=== PATIENT | female | born 1980 | race Caucasian/White ===

== ENCOUNTER 2016-05-24 19:15 | Emergency (ER) | payer OTHER, MEDICAID ==
[2016-05-24] MEDS ORDERED: NS 1,000 ML IV ONE ×2 (20:34→22:00)
[2016-05-24] MEDS ORDERED: KETOROLAC 30 MG/1 ML SDV IVP ONE (20:36)
[2016-05-24] MEDS ORDERED: DEXAMETHASONE 10 MG/ML VIAL IVP ONE (20:36)
[2016-05-24] MEDS ORDERED: HYDROmorphONE/DILAUDID 1 MG/ML SYR IVP ONE ×3 (20:36→23:26)
[2016-05-24] MEDS ORDERED: PROMETHAZINE HCL 25 MG/ML INJ IVP ONE (20:37)
--- NOTE | 2016-05-24 20:41 | EDPHY ---
H & P Stated Complaint: migraine, cluster headache spike Time Seen by Provider: 05/24/16 20:17 HPI/ROS: CHIEF COMPLAINT: Migraine HISTORY OF PRESENT ILLNESS: Patient is a 36-year-old female with a history of chronic migraines comes to the emergency department complaining of a flare. She states that she has a migraine every day of her life but that she occasionally has flares that tend to last about a week. She is currently having 1 of those. It seems to be centered in her right eye. She has not had a fever. She has not had any trauma. No neck pain or stiffness. She states that this is absolutely characteristic of her chronic migraines. She is on several medications including Klonopin, Phenergan, Benadryl and Zofran at home as well as large doses of Dilaudid. At 1 point she was taking 20 mg of Dilaudid per day but is trying to taper off. She states however that she ran out of her medications because she is trying to take them last and has not been feeling them regularly. She has been urged by the pain clinic doctor Inderjit. She is here requesting Dilaudid, Phenergan, Benadryl, Decadron and ketamine. REVIEW OF SYSTEMS: Constitutional: denies: chills, fever, recent illness, recent injury EENTM: denies: blurred vision, double vision, nose congestion Respiratory: denies: cough, shortness of breath Cardiac: denies: chest pain, irregular heart rate, lightheadedness, palpitations Gastrointestinal/Abdominal: denies: abdominal pain, diarrhea, nausea, vomiting, blood streaked stools Genitourinary: denies: dysuria, frequency, hematuria, pain Musculoskeletal: denies: joint pain, muscle pain Skin: denies: lesions, rash, jaundice, bruising Neurological: See HPI denies: numbness, paresthesia, tingling, dizziness, weakness Hematologic/Lymphatic: denies: blood clots, easy bleeding, easy bruising Immunologic/allergic: denies: HIV/AIDS, transplant EXAM: GENERAL: Wearing sunglasses and a hat in a darkened room. HEAD: Atraumatic, normocephalic. EYES: Pupils equal round and reactive to light, sensitive to light come extraocular movements intact, sclera anicteric, conjunctiva are normal. ENT: TMs normal, nares patent, oropharynx clear without exudates. Moist mucous membranes. NECK: Normal range of motion, supple without lymphadenopathy or JVD. LUNGS: Breath sounds clear to auscultation bilaterally and equal. No wheezes rales or rhonchi. HEART: Regular rate and rhythm without murmurs, rubs or gallops. ABDOMEN: Soft, nontender, normoactive bowel sounds. No guarding, no rebound. No masses appreciated. BACK: No CVA tenderness, no spinal tenderness, step-offs or deformities EXTREMITIES: Normal range of motion, no pitting or edema. No clubbing or cyanosis. NEUROLOGICAL: Cranial nerves II through XII grossly intact. Normal speech, normal gait. 5/5 strength, normal movement in all extremities, normal sensation PSYCH: Normal mood, normal affect. SKIN: Warm, dry, normal turgor, no visible rashes or lesions. Source: Patient, Family, Old records - Personal History LMP (Females 10-55): 22-28 Days Ago Current Tetanus/Diphtheria Vaccine: Yes Current Tetanus Diphtheria and Acellular Pertussis (TDAP): Yes Tetanus Vaccine Date: 2012 - Medical/Surgical History Hx Asthma: No Hx Chronic Respiratory Disease: No Hx Diabetes: No Hx Cardiac Disease: No Hx Renal Disease: No Hx Cirrhosis: No Hx Alcoholism: Yes Hx HIV/AIDS: No Hx Splenectomy or Spleen Trauma: No Other PMH: GI bleed, chronic migraines, chronic pain, Recoverying Alcoholic- sober - Family History Significant Family History: Hypertension - Social History Smoking Status: Former smoker Alcohol Use: Sober Drug Use: None Constitutional: Initial Vital Signs Temperature (C) 37.1 C 05/24/16 19:39 Heart Rate 101 H 05/24/16 19:39 Respiratory Rate 16 05/24/16 19:39 Blood Pressure 112/77 05/24/16 19:39 O2 Sat (%) 99 05/24/16 19:39 O2 Delivery Mode Room Air O2 (L/minute) 2 Allergies/Adverse Reactions: gluten [Gluten] Allergy (Unknown, Verified 03/16/16 18:32) CELIAC, ABD CRAMPING ergotamine Allergy (Verified 03/16/16 18:32) haloperidol [From Haldol] Allergy (Verified 03/16/16 18:32) haloperidol lactate [From Haldol] Allergy (Verified 03/16/16 18:32) [id number] Antimigraine Agents Allergy (Verified 03/16/16 18:32) Home Medications: Medication Instructions Recorded Promethazine HCl [Phenergan 12.5mg 12.5 - 25 mg PO Q6 PRN 01/16/13 tab] clonazePAM [Klonopin (RX)] 0.5 - 1.5 mg PO HS 01/16/13 diphenhydrAMINE [Benadryl] 25 - 50 mg PO BID PRN 01/16/13 DILAUDID 10/30/15 Ondansetron Odt [Zofran Odt 4 mg 4 mg PO Q4 PRN #20 tab 03/16/16 (RX)] Medical Decision Making ED Course/Re-evaluation: 9:15 p.m. the patient states that her pain is beginning to inch down. She is requesting some more pain medication. I will give her dose of ketamine. She states that this usually helps her use less Dilaudid. 11:15 p.m. the patient is requesting another dose of Dilaudid. 11:45 p.m. the patient states that her symptoms have resolved. She is eager to go home. Her family is ready to take her. She has prescriptions from her pain management physician. She will follow up with them. We discussed indications for returning. Differential Diagnosis: Partial list of the Differential diagnosis considered include but were not limited to; migraine, chronic migraine, cluster headache, and although unlikely based on the history and physical exam, I also considered seizure, infection, trauma. I discussed these differential diagnoses and the plan with the patient as well as the usual and expected course. The patient understands that the diagnosis is provisional and that in medicine we are not always correct and that further workup is often warranted. Usual and customary warnings were given. All of the patient's questions were answered. The patient was instructed to return to the emergency department should the symptoms at all worsen or return, otherwise to followup with the physician as we discussed. - Data Points Medications Given: Discontinued Medications Dexamethasone (Decadron Injection) 10 mg IVP EDNOW ONE Stop: 05/24/16 20:37 Last Admin: 05/24/16 20:58 Dose: 10 mg Diphenhydramine HCl (Benadryl Injection) 25 mg IVP EDNOW ONE Stop: 05/24/16 20:37 Last Admin: 05/24/16 20:57 Dose: 25 mg Hydromorphone HCl (Dilaudid) 1 mg IVP EDNOW ONE Stop: 05/24/16 20:37 Last Admin: 05/24/16 20:50 Dose: 1 mg Hydromorphone HCl (Dilaudid) 1 mg IVP EDNOW ONE Stop: 05/24/16 22:12 Last Admin: 05/24/16 22:17 Dose: 1 mg Hydromorphone HCl (Dilaudid) 1 mg IVP EDNOW ONE Stop: 05/24/16 23:27 Last Admin: 05/24/16 23:35 Dose: 1 mg Sodium Chloride (Ns) 1,000 mls @ 0 mls/hr IV ONCE ONE PRN Reason: Wide Open Stop: 05/24/16 20:35 Last Admin: 05/24/16 20:36 Dose: 1,000 mls Sodium Chloride (Ns) 1,000 mls @ 0 mls/hr IV ONCE ONE PRN Reason: Wide Open Stop: 05/24/16 22:01 Last Admin: 05/24/16 22:00 Dose: 1,000 mls Ketamine HCl (Ketamine) 10 mg IVP EDNOW ONE Stop: 05/24/16 21:18 Last Admin: 05/24/16 21:35 Dose: 10 mg Ketamine HCl (Ketamine) 10 mg IVP EDNOW ONE Stop: 05/24/16 22:48 Last Admin: 05/24/16 22:47 Dose: 10 mg Ketorolac Tromethamine (Toradol) 30 mg IVP EDNOW ONE Stop: 05/24/16 20:37 Last Admin: 05/24/16 20:55 Dose: 30 mg Promethazine HCl (Phenergan Injection) 25 mg IVP EDNOW ONE Stop: 05/24/16 20:38 Last Admin: 05/24/16 20:56 Dose: 25 mg Departure - Departure Disposition: Home, Routine, Self-Care Clinical Impression: Migraine Qualifiers: Migraine type: unspecified Status migrainosus presence: with status migrainosus Intractability: intractable Qualifier Code: (G43.911) Migraine, unspecified, intractable, with status migrainosus Condition: Fair Instructions: Migraine Headache (ED) Referrals: Marisa Jansen PA [Primary Care Provider] - As per Instructions
[2016-05-24 21:03] VITALS: RESP 20
[2016-05-24] MEDS ORDERED: KETAMINE 100 MG/10 ML SYR IVP ONE (21:17)
[2016-05-24] MEDS ORDERED: KETAMINE 500 MG/10 ML VIAL IVP ONE (22:47)
[2016-05-24 23:57] VITALS: BP 98/63; PULSE 78; TEMP 98.1; O2SAT 99
== END 2016-05-24 23:58 | disposition home or self-care (01) ==
DX: G43.911 Migraine, unspecified, intractable, with status migrainosus (principal); Z87.891 Personal history of nicotine dependence
CPT/HCPCS: 96374; J1170; J1200; J1885; J2550

== ENCOUNTER 2016-11-15 04:00 | Emergency (ER) | payer OTHER, MEDICAID ==
[2016-11-15] MEDS ORDERED: KETOROLAC 15 MG/1 ML SDV IVP/IM ONE (04:18)
[2016-11-15] MEDS ORDERED: NS 1,000 ML IV ONE (04:20)
[2016-11-15] MEDS ORDERED: KETAMINE 100 MG/10 ML SYR IVP ONE (04:23)
[2016-11-15] MEDS ORDERED: ONDANSETRON 4 MG/2 ML VIAL IVP ONE ×2 (04:23→06:17)
--- NOTE | 2016-11-15 04:24 | EDPHY ---
H & P Stated Complaint: migraine x4 days, N/V, = photophobia + otophobia Time Seen by Provider: 11/15/16 04:15 HPI/ROS: CHIEF COMPLAINT: Her migraine HISTORY OF PRESENT ILLNESS: The patient is a 36-year-old female with a history of chronic migraines she states she has had a migraine every day of her life. She comes to the emergency department today because her migraine stopped 4 months ago and she went off all of her medications including chronic large doses of Dilaudid, steroids, Klonopin, Phenergan and Benadryl and Zofran. She states that a few days ago see accidentally a gluten and this triggered her migraine again. She has had the migraine for the last 4 days. She has not had a fever. No trauma. She states that this is typical of her migraines. She has had some nausea and vomiting. REVIEW OF SYSTEMS: Constitutional: denies: chills, fever, recent illness, recent injury EENTM: denies: blurred vision, double vision, nose congestion Respiratory: denies: cough, shortness of breath Cardiac: denies: chest pain, irregular heart rate, lightheadedness, palpitations Gastrointestinal/Abdominal: See HPI denies: abdominal pain, diarrhea, blood streaked stools Genitourinary: denies: dysuria, frequency, hematuria, pain Musculoskeletal: denies: joint pain, muscle pain Skin: denies: lesions, rash, jaundice, bruising Neurological: See HPI denies:numbness, paresthesia, tingling, dizziness, weakness Hematologic/Lymphatic: denies: blood clots, easy bleeding, easy bruising Immunologic/allergic: denies: HIV/AIDS, transplant EXAM: GENERAL: In the dark, soft voice HEAD: Atraumatic, normocephalic. EYES: Pupils equal round and reactive to light, extraocular movements intact, sclera anicteric, conjunctiva are normal. ENT: TMs normal, nares patent, oropharynx clear without exudates. Moist mucous membranes. NECK: Normal range of motion, supple without lymphadenopathy or JVD. LUNGS: Breath sounds clear to auscultation bilaterally and equal. No wheezes rales or rhonchi. HEART: Regular rate and rhythm without murmurs, rubs or gallops. ABDOMEN: Soft, nontender, normoactive bowel sounds. No guarding, no rebound. No masses appreciated. BACK: No CVA tenderness, no spinal tenderness, step-offs or deformities EXTREMITIES: Normal range of motion, no pitting or edema. No clubbing or cyanosis. NEUROLOGICAL: Cranial nerves II through XII grossly intact. Normal speech, normal gait. 5/5 strength, normal movement in all extremities, normal sensation PSYCH: Normal mood, normal affect. SKIN: Warm, dry, normal turgor, no visible rashes or lesions. Source: Patient Exam Limitations: No limitations - Personal History LMP (Females 10-55): 15-21 Days Ago Current Tetanus/Diphtheria Vaccine: Yes Current Tetanus Diphtheria and Acellular Pertussis (TDAP): Yes Tetanus Vaccine Date: 2012 - Medical/Surgical History Hx Asthma: No Hx Chronic Respiratory Disease: No Hx Diabetes: No Hx Cardiac Disease: No Hx Renal Disease: No Hx Cirrhosis: No Hx Alcoholism: Yes Hx HIV/AIDS: No Hx Splenectomy or Spleen Trauma: No Other PMH: GI bleed, chronic migraines, chronic pain, Recoverying Alcoholic- sober - Family History Significant Family History: No pertinent family hx - Social History Smoking Status: Former smoker Alcohol Use: Sober Drug Use: None Constitutional: Initial Vital Signs Temperature (C) 36.6 C 11/15/16 04:01 Heart Rate 124 H 11/15/16 04:01 Respiratory Rate 18 11/15/16 04:01 Blood Pressure 111/82 H 11/15/16 04:01 O2 Sat (%) 96 11/15/16 04:01 O2 Delivery Mode Room Air Allergies/Adverse Reactions: gluten [Gluten] Allergy (Unknown, Verified 03/16/16 18:32) CELIAC, ABD CRAMPING ergotamine Allergy (Verified 03/16/16 18:32) haloperidol [From Haldol] Allergy (Verified 03/16/16 18:32) haloperidol lactate [From Haldol] Allergy (Verified 03/16/16 18:32) [id number] Antimigraine Agents Allergy (Verified 03/16/16 18:32) Home Medications: Medication Instructions Recorded KLONOPIN 11/15/16 Medical Decision Making ED Course/Re-evaluation: We discussed the fact that wearing narcotic free emergency department. The patient understands this and would like to primarily treat her symptoms with ketamine and Zofran. She declines Benadryl, Phenergan, Reglan and steroids. 5:30 a.m. the patient is feeling somewhat better. She is asking for 2nd dose of ketamine. 6:20 a.m. the patient is feeling much better. She is asking for 1 more dose of ketamine and Zofran before she goes as well as a take-home pack of Zofran. She states that her insurance limits her to 12 tablets of Zofran each month. Differential Diagnosis: Partial list of the Differential diagnosis considered include but were not limited to; migraine, anxiety, prescription medication misuse and although unlikely based on the history and physical exam, I also considered fever, tumor , seizure, CVA, MS. I discussed these differential diagnoses and the plan with the patient as well as the usual and expected course. The patient understands that the diagnosis is provisional and that in medicine we are not always correct and that further workup is often warranted. Usual and customary warnings were given. All of the patient's questions were answered. The patient was instructed to return to the emergency department should the symptoms at all worsen or return, otherwise to followup with the physician as we discussed. - Data Points Medications Given: Discontinued Medications Sodium Chloride (Ns) 1,000 mls @ 0 mls/hr IV ONCE ONE; Wide Open PRN Reason: Protocol Stop: 11/15/16 04:21 Last Admin: 11/15/16 04:20 Dose: 1,000 mls Ketamine HCl (Ketamine) 15 mg IVP EDNOW ONE Stop: 11/15/16 04:24 Last Admin: 11/15/16 04:45 Dose: 15 mg Ketamine HCl (Ketamine) 15 mg IVP EDNOW ONE Stop: 11/15/16 05:22 Last Admin: 11/15/16 06:03 Dose: 15 mg Ketorolac Tromethamine (Toradol) 15 mg IVP/IM EDNOW ONE Stop: 11/15/16 04:19 Last Admin: 11/15/16 04:40 Dose: 15 mg Ondansetron HCl (Zofran) 4 mg IVP EDNOW ONE Stop: 11/15/16 04:24 Last Admin: 11/15/16 04:38 Dose: 4 mg Departure - Departure Disposition: Home, Routine, Self-Care Clinical Impression: Migraine Qualifiers: Migraine type: unspecified Status migrainosus presence: without status migrainosus Intractability: not intractable Qualified Code(s): G43.909 - Migraine, unspecified, not intractable, without status migrainosus Condition: Fair Instructions: Migraine Headache (ED) Referrals: Marisa Jansen PA [Primary Care Provider] - As per Instructions
[2016-11-15] MEDS ORDERED: KETAMINE 500 MG/10 ML VIAL IVP ONE ×2 (05:21→06:17)
[2016-11-15] MEDS ORDERED: KETAMINE 100 MG/10 ML SYR ONE ×2 (05:53→06:28)
[2016-11-15] MEDS ORDERED: ONDANSETRON 4MG PREPACK#2 BTL TAKEHOME ONE ×2 (06:25→06:35)
[2016-11-15 06:46] VITALS: BP 113/85; PULSE 86; RESP 18; TEMP 97.7; O2SAT 97
== END 2016-11-15 07:13 | disposition home or self-care (01) ==
DX: G43.909 Migraine, unspecified, not intractable, without status migrainosus (principal); E86.9 Volume depletion, unspecified; Z87.891 Personal history of nicotine dependence
CPT/HCPCS: 96374; J1885; J2405

== ENCOUNTER 2017-01-18 00:46 | Emergency (ER) | payer OTHER, MEDICAID ==
[2017-01-18 00:51] VITALS: RESP 16
[2017-01-18] MEDS ORDERED: NS 1,000 ML IV ONE (00:56)
[2017-01-18] MEDS ORDERED: ONDANSETRON 4 MG/2 ML VIAL IVP ONE (00:56)
[2017-01-18] MEDS ORDERED: HYDROmorphONE/DILAUDID 1 MG/ML INJ IVP ONE ×2 (00:56→02:06)
--- NOTE | 2017-01-18 00:56 | EDPHY ---
H & P Stated Complaint: RLQ abd pain for one week HPI/ROS: HPI CHIEF COMPLAINT: Abdominal pain HISTORY OF PRESENT ILLNESS: This patient very pleasant 36-year-old female significant past medical history for endometriosis, GI bleed, alcoholism and migraine disorder, she presents emergency room with a week and a half of right lower quadrant abdominal pain. She describes it as sharp stabbing. 10/10 pain. She denies fever. She endorses ongoing right lower quadrant pain for the past week and half. Associated nausea but no vomiting or diarrhea. Denies urinary symptoms. Denies being . Past Medical History: Migraine headaches, GI bleed, alcoholism Past Surgical History: Endometriosis surgery, appendectomy Social History: Denies daily use of drugs alcohol tobacco. Family History: Noncontributory ROS REVIEW OF SYSTEMS: A comprehensive 10 point review of systems is otherwise negative aside from elements mentioned in the history of present illness. Exam Constitutional appears well nontoxic, triage nursing summary reviewed, vital signs reviewed, awake/alert. Eyes normal conjunctivae and sclera, EOMI, PERRLA. HENT normal inspection, atraumatic, moist mucus membranes, no epistaxis, neck supple/ no meningismus, no raccoon eyes. Respiratory clear to auscultation bilaterally, normal breath sounds, no respiratory distress, no wheezing. Cardiovascular rate normal, regular rhythm, no murmur, no edema, distal pulses normal. Gastrointestinal soft, tender palpation right lower quadrant, no rebound, no guarding, normal bowel sounds, no distension, no pulsatile mass. Genitourinary no CVA tenderness. Musculoskeletal no midline vertebral tenderness, full range of motion, no calf swelling, no tenderness of extremities, no meningismus, good pulses, neurovascularly intact. Skin pink, warm, & dry, no rash, skin atraumatic. Neurologic awake, alert and oriented x 3, AAOx3, moves all 4 extremities equally, motor intact, sensory intact, CN II-XII intact, normal cerebellar, normal vision, normal speech. Psychiatric normal mood/affect. Heme/Lymph/Immune no lymphadenopathy. Differential diagnosis includes but is not limited to and in no particular order : Bowel obstruction, appendicitis, gallbladder disease, diverticulitis, colitis , enteritis, perforated viscus, gastritis, GERD, esophagitis, urinary tract infection, pyelonephritis, kidney stones Medical Decision Making: Plan for this patient IV establishment with IV fluid bolus, 0.5 mg IV Dilaudid for pain control Zofran for nausea check abdominal blood work, CT scan abdomen pelvis with IV contrast rule out acute appendicitis. Re-evaluation: 0208AM: Patient's test is positive. QUANT pending. I have canceled this patient CT scan. Will proceed with ultrasound. Patient reports to me her last menstrual period was November 30 to December 05. She has since not had a menstrual period. This is her 1st . She does tell me on December 21 she started taking control mid cycle. Has done so since. No further. 0239AM: Ultrasound of the pelvis The results of the study are this shows a 6 week 4 days IUP. Good flow to both ovaries. Left corpus luteum ovarian cyst, heart rate of baby is 117 slightly low. But no subchorionic hemorrhage. I discussed the results of this study with the radiologist Dr. Heaton 0331: I did re-evaluate the patient she is resting comfortably. Re- examination her abdomen is soft minimal tenderness. Her ultrasound has been reviewed. She is she has an IUP. Vital signs are stable. Labs are reviewed. No elevated white blood cell count. She understands that she has a 6 week 4 day IUP should follow up with OBGYN she start taking a vitamin. She should refrain from drinking alcohol. Additionally she is on clot in chronically for anxiety. I explained should taper off this medication with her primary care doctor as this is not a good medication to be on while she is . She understands this. She understands return emergency room if she develops worsening abdominal pain fever vomiting. She does have right lower quadrant pain but minimal. No white count. She has had an appendectomy. The ultrasound shows normal ovaries. Source: Patient - Personal History LMP (Females 10-55): Over 28 Days Ago Current Tetanus/Diphtheria Vaccine: Yes Current Tetanus Diphtheria and Acellular Pertussis (TDAP): Yes Tetanus Vaccine Date: 2012 - Medical/Surgical History Hx Asthma: No Hx Chronic Respiratory Disease: No Hx Diabetes: No Hx Cardiac Disease: No Hx Renal Disease: No Hx Cirrhosis: No Hx Alcoholism: Yes Hx HIV/AIDS: No Hx Splenectomy or Spleen Trauma: No Other PMH: GI bleed, chronic migraines, chronic pain, Recoverying Alcoholic- sober, endometriosis - Social History Smoking Status: Former smoker Constitutional: Initial Vital Signs Temperature (C) 36.7 C 01/18/17 00:48 Heart Rate 105 H 01/18/17 00:48 Respiratory Rate 16 01/18/17 00:48 Blood Pressure 130/76 H 01/18/17 00:48 O2 Sat (%) 100 01/18/17 00:48 O2 Delivery Mode Room Air Allergies/Adverse Reactions: gluten [Gluten] Allergy (Unknown, Verified 01/18/17 00:52) CELIAC, ABD CRAMPING ergotamine Allergy (Verified 01/18/17 00:52) haloperidol [From Haldol] Allergy (Verified 01/18/17 00:52) haloperidol lactate [From Haldol] Allergy (Verified 01/18/17 00:52) [id number] Antimigraine Agents Allergy (Verified 01/18/17 00:52) Home Medications: Medication Instructions Recorded LIGIA 11/15/16 Medical Decision Making - Data Points Laboratory Results: Laboratory Results 01/18/17 01:07 01/18/17 01:07 01/18/17 01/18/17 01/18/17 01:17 01:07 01:07 WBC RBC Hgb Hct MCV MCH MCHC RDW Plt Count MPV Neut % (Auto) Lymph % (Auto) Swisher % (Auto) Eos % (Auto) Baso % (Auto) Nucleat RBC Rel Count Absolute Neuts (auto) Absolute Lymphs (auto) Absolute Monos (auto) Absolute Eos (auto) Absolute Basos (auto) Absolute Nucleated RBC Immature Gran % Immature Gran # Sodium 139 mEq/L mEq/L (134-144) Potassium 3.8 mEq/L mEq/L (3.5-5.2) Chloride 103 mEq/L mEq/L (97-110) Carbon Dioxide 21 mEq/l L mEq/l (22-31) Anion Gap 15 mEq/L mEq/L (8-16) BUN 14 mg/dL mg/dL (7-23) Creatinine 0.9 mg/dL mg/dL (0.6-1.0) Estimated GFR > 60 Glucose 84 mg/dL mg/dL (70-100) Calcium 9.4 mg/dL mg/dL (8.5-10.4) Total Bilirubin 0.4 mg/dL mg/dL (0.1-1.4) Conjugated Bilirubin 0.2 mg/dL mg/dL (0.0-0.5) Unconjugated Bilirubin 0.2 mg/dL mg/dL (0.0-1.1) AST 17 IU/L IU/L (14-46) ALT 29 IU/L IU/L (9-52) Alkaline Phosphatase 61 IU/L IU/L (38-126) Total Protein 7.6 g/dL g/dL (6.3-8.2) Albumin 4.4 g/dL g/dL (3.5-5.0) Lipase 258 IU/L IU/L (23-300) Beta HCG, Qual POSITIVE Beta HCG, Quant Urine Color COLORLESS Urine Appearance CLEAR Urine pH 7.0 (5.0-7.5) Ur Specific Slade 1.004 (1.002-1.030) Urine Protein NEGATIVE (NEGATIVE) Urine Ketones NEGATIVE (NEGATIVE) Urine Blood NEGATIVE (NEGATIVE) Urine Nitrate NEGATIVE (NEGATIVE) Urine Bilirubin NEGATIVE (NEGATIVE) Urine Urobilinogen NEGATIVE EU EU (0.2-1.0) Ur Leukocyte Esterase NEGATIVE (NEGATIVE) Urine Glucose NEGATIVE (NEGATIVE) 01/18/17 01/18/17 01:07 01:00 WBC 8.21 10^3/uL 10^3/uL (3.80-9.50) RBC 4.61 10^6/uL 10^6/uL (4.18-5.33) Hgb 13.4 g/dL g/dL (12.6-16.3) Hct 38.9 % % (38.0-47.0) MCV 84.4 fL fL (81.5-99.8) MCH 29.1 pg pg (27.9-34.1) MCHC 34.4 g/dL g/dL (32.4-36.7) RDW 12.9 % % (11.5-15.2) Plt Count 254 10^3/uL 10^3/uL (150-400) MPV 10.8 fL fL (8.7-11.7) Neut % (Auto) 48.6 % % (39.3-74.2) Lymph % (Auto) 41.0 % % (15.0-45.0) Swisher % (Auto) 7.6 % % (4.5-13.0) Eos % (Auto) 1.9 % % (0.6-7.6) Baso % (Auto) 0.5 % % (0.3-1.7) Nucleat RBC Rel Count 0.0 % % (0.0-0.2) Absolute Neuts (auto) 3.99 10^3/uL 10^3/uL (1.70-6.50) Absolute Lymphs (auto) 3.37 10^3/uL H 10^3/uL (1.00-3.00) Absolute Monos (auto) 0.62 10^3/uL 10^3/uL (0.30-0.80) Absolute Eos (auto) 0.16 10^3/uL 10^3/uL (0.03-0.40) Absolute Basos (auto) 0.04 10^3/uL 10^3/uL (0.02-0.10) Absolute Nucleated RBC 0.00 10^3/uL 10^3/uL (0-0.01) Immature Gran % 0.4 % % (0.0-1.1) Immature Gran # 0.03 10^3/uL 10^3/uL (0.00-0.10) Sodium Potassium Chloride Carbon Dioxide Anion Gap BUN Creatinine Estimated GFR Glucose Calcium Total Bilirubin Conjugated Bilirubin Unconjugated Bilirubin AST ALT Alkaline Phosphatase Total Protein Albumin Lipase Beta HCG, Qual Beta HCG, Quant 25288.00 mIU/mL H mIU/mL (0.00-4.83) Urine Color Urine Appearance Urine pH Ur Specific Slade Urine Protein Urine Ketones Urine Blood Urine Nitrate Urine Bilirubin Urine Urobilinogen Ur Leukocyte Esterase Urine Glucose Medications Given: Discontinued Medications Acetaminophen (Tylenol) 1,000 mg PO EDNOW ONE Stop: 01/18/17 02:37 Last Admin: 01/18/17 02:45 Dose: 1,000 mg Hydromorphone HCl (Dilaudid) 0.5 mg IVP EDNOW ONE Stop: 01/18/17 00:57 Last Admin: 01/18/17 01:08 Dose: 0.5 mg Hydromorphone HCl (Dilaudid) 0.5 mg IVP EDNOW ONE Stop: 01/18/17 02:07 Last Admin: 01/18/17 02:07 Dose: 0.5 mg Sodium Chloride (Ns) 1,000 mls @ 0 mls/hr IV EDNOW ONE; Wide Open PRN Reason: Protocol Stop: 01/18/17 00:57 Last Admin: 01/18/17 01:07 Dose: 1,000 mls Ondansetron HCl (Zofran) 4 mg IVP EDNOW ONE Stop: 01/18/17 00:57 Last Admin: 01/18/17 01:07 Dose: 4 mg Departure - Departure Disposition: Home, Routine, Self-Care Clinical Impression: Abdominal pain Qualifiers: Abdominal location: right lower quadrant Qualified Code(s): R10.31 - Right lower quadrant pain Qualifiers: Weeks of gestation: less than 8 weeks Qualified Code(s): Z3A.01 - Less than 8 weeks gestation of Condition: Good Instructions: Acute Abdominal Pain (ED), (ED) Additional Instructions: 1.Return to the emergency room if he develops worsening symptoms questions or concerns. 2. Start taking a vitamin. 3. Do not drink alcohol or smoke tobacco. I do also recommend you taper with your doctor off your Klonopin. Referrals: Marisa Jansen PA [Primary Care Provider] - As per Instructions
[2017-01-18 01:26] LABS: % IMMATURE GRANULYOCYTES 0.4 % (0.0-1.1); ABSOLUTE IMMATURE GRANULOCYTES 0.03 10^3/uL (0.00-0.10); ADD DIFF? NO; ADD MORPH? NO; ADD SCAN? NO; ATYPICAL LYMPHOCYTE FLAG 0 (0-99); FRAGMENT RBC FLAG 0 (0-99); HEMATOCRIT 38.9 % (38.0-47.0); HEMOGLOBIN 13.4 g/dL (12.6-16.3); LEFT SHIFT FLG 0 (0-99); LIPEMIA HEMOLYSIS FLAG 90 (0-99); MEAN CELL HEMOGLOBIN 29.1 pg (27.9-34.1); MEAN CELL HEMOGLOBIN CONCENTR. 34.4 g/dL (32.4-36.7); MEAN CELL VOLUME 84.4 fL (81.5-99.8); MEAN PLATELET VOLUME 10.8 fL (8.7-11.7); PLATELET CLUMPS FLAG 0 (0-99); PLATELET COUNT 254 10^3/uL (150-400); RED BLOOD CELL COUNT 4.61 10^6/uL (4.18-5.33); RED CELL DISTRIBUTION WIDTH 12.9 % (11.5-15.2)
[2017-01-18] MEDS ORDERED: IOPAMIDOL (ISOVUE-300) 100 ML BTL ONE (01:27)
[2017-01-18 01:36] LABS: ALANINE AMINOTRANSFERASE 29 IU/L (9-52); ALBUMIN 4.4 g/dL (3.5-5.0); ALKALINE PHOSPHATASE 61 IU/L (38-126); ANION GAP 15 mEq/L (8-16); ASPARTATE AMINOTRANSFERASE 17 IU/L (14-46); BILIRUBIN,TOTAL 0.4 mg/dL (0.1-1.4); BILIRUBIN-CONJUGATED 0.2 mg/dL (0.0-0.5); BILIRUBIN-UNCONJUGATED 0.2 mg/dL (0.0-1.1); CALCIUM 9.4 mg/dL (8.5-10.4); CARBON DIOXIDE 21 mEq/l (22-31); CHLORIDE 103 mEq/L (97-110); CREATININE 0.9 mg/dL (0.6-1.0); GLOMERULAR FILTRATION RATE > 60; GLUCOSE 84 mg/dL (70-100); POTASSIUM 3.8 mEq/L (3.5-5.2); SODIUM 139 mEq/L (134-144); TOTAL PROTEIN 7.6 g/dL (6.3-8.2)
[2017-01-18 01:40] LABS: COLOR COLORLESS; LEUKOCYTE ESTERASE,URINE NEGATIVE (NEGATIVE); NITRITE,URINE NEGATIVE (NEGATIVE)
[2017-01-18] MEDS ORDERED: HYDROmorphONE/DILAUDID 1 MG/ML INJ ONE (01:55)
[2017-01-18] MEDS ORDERED: ACETAMINOPHEN 500 MG TAB PO ONE (02:36)
[2017-01-18 03:42] VITALS: BP 112/74; PULSE 80; TEMP 97.9; O2SAT 99
== END 2017-01-18 03:58 | disposition home or self-care (01) ==
PROC: 3E0337Z Introduction of Electrolytic and Water Balance Substance into Peripheral Vein, Percutaneous Approach (ICD-10-PCS; principal; 2017-01-18)
DX: O26.891 Other specified pregnancy related conditions, first trimester (principal); R10.31 Right lower quadrant pain; O99.281 Endocrine, nutritional and metabolic diseases complicating pregnancy, first trimester; E86.9 Volume depletion, unspecified; Z3A.01 Less than 8 weeks gestation of pregnancy; Z87.891 Personal history of nicotine dependence; Z90.49 Acquired absence of other specified parts of digestive tract
CPT/HCPCS: 96374; J1170; J2405; Q9967

== ENCOUNTER → 2017-01-20 | Outpatient (CLI) | payer OTHER | LOC: FIMAGING 10:53 | PROVIDERS: ATTEND Physician Assistant | DX: R10.11 Right upper quadrant pain (principal); Z33.1 Pregnant state, incidental ==

== ENCOUNTER 2017-01-29 09:09 | Observation (INO) | payer OTHER ==
--- NOTE | 2017-01-29 09:38 | EDPHY ---
H & P Stated Complaint: 8 wks r sided abd pain/cramping and spotting Time Seen by Provider: 01/29/17 09:22 HPI/ROS: CHIEF COMPLAINT: Vaginal bleeding, , continued abdominal pain HISTORY OF PRESENT ILLNESS: 37-year-old female currently 8 weeks , seen emergency department 11 days ago for complaints of abdominal pain at which point she was found to be . She presents to the ER today complaining of continued right-sided abdominal pain with new vaginal bleeding for the past 7 days with recent passage of multiple clots as well as right flank pain. Also states that yesterday when she was getting out of the shower she had a syncopal episode, denies trauma to her head or other body region. States that she started feel lightheaded when she was coming out of the shower. No complaints of chest pain, dyspnea. At her last emergency department visit the patient had a confirmed IUP, no history of IVF. She has history of appendectomy as well. Patient saw her OBGYN today at [facility] and was told to come to the ER for evaluation She denies: Nausea, vomiting, diarrhea, melena, hematochezia, dysuria, increased frequency, headache, peripheral edema, seizure REVIEW OF SYSTEMS: A ten point review of systems was performed and is negative with the exception of the items mentioned in the HPI PAST MEDICAL & SURGICAL HISTORY: currently 8 weeks . Appendectomy. Endometriosis. Migraine. Alcoholism. SOCIAL HISTORY: denies recent alcohol use PHYSICAL EXAM (Prior to examination, patient consented to physical exam, hands were washed and my usual and customary physical exam procedures followed) 1) GENERAL: Well-developed, well-nourished, alert and oriented. Appears uncomfortable . 2) HEAD: Normocephalic, atraumatic 3) HEENT: Pupils equal, round, reactive to light bilaterally. Sclera anicteric. Nasopharynx, oropharynx, clear, no lesions. Moist mucous membrane 4) NECK: Full range of motion, no meningeal signs. 5) LUNGS: Clear auscultation bilaterally, no wheezes, no rhonchi, no retractions. 6) HEART: Regular rate and rhythm, no murmur, no heave, no gallop. 7) ABDOMEN: Guarding abdomen, tender to palpation right upper and right lower quadrants. Negative peritoneal sign., 8) MUSCULOSKELETAL: Moving all extremities, no focal areas of tenderness, no obvious trauma. No peripheral edema or discoloration. 9) BACK: positive right CVA tenderness, no midline vertebral tenderness, no fluctuance, no step-off, no obvious trauma, no visual or palpable abnormality. 10) SKIN: No rash, no petechiae. 11) Psychiatric: Patient is oriented X 3, there is no agitation. DIFFERENTIAL DIAGNOSIS: in no particular order including but limited to ectopic , spontaneous , nephrolithiasis, pyelonephritis ureterolithiasis - Personal History LMP (Females 10-55): Current Tetanus/Diphtheria Vaccine: Yes Tetanus Vaccine Date: 2012 - Medical/Surgical History Hx Asthma: No Hx Chronic Respiratory Disease: No Hx Diabetes: No Hx Cardiac Disease: No Hx Renal Disease: No Hx Cirrhosis: No Hx Alcoholism: Yes Hx HIV/AIDS: No Hx Splenectomy or Spleen Trauma: No Other PMH: GI bleed, chronic migraines, chronic pain, Recoverying Alcoholic- sober, endometriosis - Social History Smoking Status: Former smoker Constitutional: Initial Vital Signs Temperature (C) 36.8 C 01/29/17 09:17 Heart Rate 105 H 01/29/17 09:17 Respiratory Rate 20 01/29/17 09:17 Blood Pressure 106/86 H 01/29/17 09:17 O2 Sat (%) 98 01/29/17 09:17 O2 Delivery Mode Room Air Allergies/Adverse Reactions: gluten [Gluten] Allergy (Unknown, Verified 01/29/17 09:16) CELIAC, ABD CRAMPING ergotamine Allergy (Verified 01/29/17 09:16) haloperidol [From Haldol] Allergy (Verified 01/29/17 09:16) haloperidol lactate [From Haldol] Allergy (Verified 01/29/17 09:16) [id number] Antimigraine Agents Allergy (Verified 01/29/17 09:16) Home Medications: Medication Instructions Recorded KLONOPIN 11/15/16 Medical Decision Making - Diagnostics Imaging Results: Imaging Impressions Abdomen Ultrasound 01/29/17 09:32 Impression: There has been no significant interval change since 01/20/2017 in the appearance of the upper abdomen. Findings were discussed with Paris Funk PA-C at 11:24, on 01/29/2017. Obstetrics Ultrasound 01/29/17 09:32 Impression: 1. Single living intrauterine gestation with estimated gestational age of 8 weeks 1 day. 2. Small subchorionic hemorrhage. Findings discussed with Jenn Funk PA-C, 01/29/2017 at 1146 hours. ED Course/Re-evaluation: 9:38 a.m.: Old medical records reviewed including ultrasounds of 11 days ago. At that time she had no complaints of vaginal bleeding, she is currently complaining of vaginal bleeding. Will obtain Rh and repeat ultrasound and re- evaluate.. Discussed case with Dr. Chance Quintana in the ER 12:13 p.m.: Re-evaluation, discussed her imaging results with her. At this time she is crying and appears to be in quite a bit of discomfort, requesting analgesia. She has a history of benzodiazepine dependence, last used Klonopin last evening. She is attempting to taper off of this. I had a lengthy discussion with her informed her of the risks and benefits of both benzodiazepine and opiate use during . Because she is in quite a bit of discomfort she requests these medications and verbalized understanding of the risks to her unborn child. 1:10 a.m.: Re-evaluation, patient given IV Dilaudid, Ativan, Zofran, complaining of continued intractable pain, crying at this time. The specific etiology of her abdominal pain is not completely clear at this time as she has a history of appendectomy, shows no signs of acute cholecystitis, no evidence of cystitis or pyelonephritis. 1:20 p.m.: Phone consultation with Dr. Alisson Oliva agrees to admit patient. 1:45 p.m.: Patient requesting further analgesia. With nurse Gab Quan at bedside, I once again had another discussion with the patient regarding the indications, risks, benefits, of opiate use during . She has verbalized understanding of the risks and wishes to proceed with analgesia given the extent of her current pain. - Data Points Laboratory Results: Laboratory Results 01/29/17 09:30 01/29/17 09:30 01/29/17 01/29/17 01/29/17 09:30 09:30 09:30 WBC RBC Hgb Hct MCV MCH MCHC RDW Plt Count MPV Neut % (Auto) Lymph % (Auto) Stanton % (Auto) Eos % (Auto) Baso % (Auto) Nucleat RBC Rel Count Absolute Neuts (auto) Absolute Lymphs (auto) Absolute Monos (auto) Absolute Eos (auto) Absolute Basos (auto) Absolute Nucleated RBC Immature Gran % Immature Gran # Sodium 142 mEq/L mEq/L (134-144) Potassium 3.5 mEq/L mEq/L (3.5-5.2) Chloride 109 mEq/L mEq/L (97-110) Carbon Dioxide 21 mEq/l L mEq/l (22-31) Anion Gap 12 mEq/L mEq/L (8-16) BUN 6 mg/dL L mg/dL (7-23) Creatinine 0.7 mg/dL mg/dL (0.6-1.0) Estimated GFR > 60 Glucose 90 mg/dL mg/dL (70-100) Calcium 9.2 mg/dL mg/dL (8.5-10.4) Total Bilirubin 0.4 mg/dL mg/dL (0.1-1.4) Conjugated Bilirubin 0.3 mg/dL mg/dL (0.0-0.5) Unconjugated Bilirubin 0.1 mg/dL mg/dL (0.0-1.1) AST 17 IU/L IU/L (14-46) ALT 28 IU/L IU/L (9-52) Alkaline Phosphatase 51 IU/L IU/L (38-126) Total Protein 6.9 g/dL g/dL (6.3-8.2) Albumin 4.1 g/dL g/dL (3.5-5.0) Lipase 98 IU/L IU/L (23-300) Beta HCG, Quant 71199.00 mIU/mL H mIU/mL (0.00-4.83) Urine Color YELLOW Urine Appearance CLEAR Urine pH 6.0 (5.0-7.5) Ur Specific Kendall 1.023 (1.002-1.030) Urine Protein NEGATIVE (NEGATIVE) Urine Ketones NEGATIVE (NEGATIVE) Urine Blood NEGATIVE (NEGATIVE) Urine Nitrate NEGATIVE (NEGATIVE) Urine Bilirubin NEGATIVE (NEGATIVE) Urine Urobilinogen NEGATIVE EU EU (0.2-1.0) Ur Leukocyte Esterase NEGATIVE (NEGATIVE) Urine RBC 1-3 /hpf /hpf (0-3) Urine WBC 1-3 /hpf /hpf (0-3) Ur Epithelial Cells NONE SEEN /lpf /lpf (NONE-1+) Urine Mucus TRACE /lpf /lpf (NONE-1+) Urine Glucose NEGATIVE (NEGATIVE) Patient ABO/Rh O POSITIVE 01/29/17 09:30 WBC 6.38 10^3/uL 10^3/uL (3.80-9.50) RBC 4.32 10^6/uL 10^6/uL (4.18-5.33) Hgb 12.5 g/dL L g/dL (12.6-16.3) Hct 37.0 % L % (38.0-47.0) MCV 85.6 fL fL (81.5-99.8) MCH 28.9 pg pg (27.9-34.1) MCHC 33.8 g/dL g/dL (32.4-36.7) RDW 13.0 % % (11.5-15.2) Plt Count 225 10^3/uL 10^3/uL (150-400) MPV 10.8 fL fL (8.7-11.7) Neut % (Auto) 48.7 % % (39.3-74.2) Lymph % (Auto) 38.6 % % (15.0-45.0) Stanton % (Auto) 9.9 % % (4.5-13.0) Eos % (Auto) 2.0 % % (0.6-7.6) Baso % (Auto) 0.6 % % (0.3-1.7) Nucleat RBC Rel Count 0.0 % % (0.0-0.2) Absolute Neuts (auto) 3.11 10^3/uL 10^3/uL (1.70-6.50) Absolute Lymphs (auto) 2.46 10^3/uL 10^3/uL (1.00-3.00) Absolute Monos (auto) 0.63 10^3/uL 10^3/uL (0.30-0.80) Absolute Eos (auto) 0.13 10^3/uL 10^3/uL (0.03-0.40) Absolute Basos (auto) 0.04 10^3/uL 10^3/uL (0.02-0.10) Absolute Nucleated RBC 0.00 10^3/uL 10^3/uL (0-0.01) Immature Gran % 0.2 % % (0.0-1.1) Immature Gran # 0.01 10^3/uL 10^3/uL (0.00-0.10) Sodium Potassium Chloride Carbon Dioxide Anion Gap BUN Creatinine Estimated GFR Glucose Calcium Total Bilirubin Conjugated Bilirubin Unconjugated Bilirubin AST ALT Alkaline Phosphatase Total Protein Albumin Lipase Beta HCG, Quant Urine Color Urine Appearance Urine pH Ur Specific Kendall Urine Protein Urine Ketones Urine Blood Urine Nitrate Urine Bilirubin Urine Urobilinogen Ur Leukocyte Esterase Urine RBC Urine WBC Ur Epithelial Cells Urine Mucus Urine Glucose Patient ABO/Rh Medications Given: Discontinued Medications Hydromorphone HCl (Dilaudid) 1 mg IVP EDNOW ONE Stop: 01/29/17 12:15 Last Admin: 01/29/17 12:19 Dose: 1 mg Sodium Chloride (Ns) 1,000 mls @ 0 mls/hr IV ONCE ONE PRN Reason: Wide Open Stop: 01/29/17 13:22 Last Admin: 01/29/17 13:24 Dose: 1,000 mls Lorazepam (Ativan Injection) 1 mg IVP EDNOW ONE Stop: 01/29/17 12:15 Last Admin: 01/29/17 12:19 Dose: 1 mg Ondansetron HCl (Zofran) 4 mg IVP EDNOW ONE Stop: 01/29/17 12:15 Last Admin: 01/29/17 12:19 Dose: 4 mg Departure - Departure Disposition: [facility] Acute Clinical Impression: Abdominal pain Qualifiers: Abdominal location: right lower quadrant Qualified Code(s): R10.31 - Right lower quadrant pain Condition: Fair
[2017-01-29 09:49] LABS: % IMMATURE GRANULYOCYTES 0.2 % (0.0-1.1); ABSOLUTE IMMATURE GRANULOCYTES 0.01 10^3/uL (0.00-0.10); ADD DIFF? NO; ADD MORPH? NO; ADD SCAN? NO; ATYPICAL LYMPHOCYTE FLAG 30 (0-99); COLOR YELLOW; FRAGMENT RBC FLAG 0 (0-99); HEMOGLOBIN 12.5 g/dL (12.6-16.3); LEFT SHIFT FLG 0 (0-99); LEUKOCYTE ESTERASE,URINE NEGATIVE (NEGATIVE); LIPEMIA HEMOLYSIS FLAG 90 (0-99); MEAN CELL HEMOGLOBIN 28.9 pg (27.9-34.1); MEAN CELL HEMOGLOBIN CONCENTR. 33.8 g/dL (32.4-36.7); MEAN CELL VOLUME 85.6 fL (81.5-99.8); MEAN PLATELET VOLUME 10.8 fL (8.7-11.7); NITRITE,URINE NEGATIVE (NEGATIVE); PLATELET CLUMPS FLAG 0 (0-99); PLATELET COUNT 225 10^3/uL (150-400); RED BLOOD CELL COUNT 4.32 10^6/uL (4.18-5.33)
--- NOTE | 2017-01-29 09:54 | CPEKG ---
Heart Rate: 86 RR Interval: 698 P-R Interval: 148 QRSD Interval: 78 QT Interval: 344 QTC Interval: 412 P Donald: 74 QRS Donald: 71 T Wave Donald: 17 EKG Severity - NORMAL ECG - EKG Impression: SINUS RHYTHM Electronically Signed By: Chance Quintana 29-Jan-2017 15:34:09
[2017-01-29 09:55] LABS: MUCUS TRACE /lpf (NONE-1+)
[2017-01-29 10:05] LABS: ALANINE AMINOTRANSFERASE 28 IU/L (9-52); ALBUMIN 4.1 g/dL (3.5-5.0); ALKALINE PHOSPHATASE 51 IU/L (38-126); ANION GAP 12 mEq/L (8-16); ASPARTATE AMINOTRANSFERASE 17 IU/L (14-46); BILIRUBIN,TOTAL 0.4 mg/dL (0.1-1.4); BILIRUBIN-CONJUGATED 0.3 mg/dL (0.0-0.5); BILIRUBIN-UNCONJUGATED 0.1 mg/dL (0.0-1.1); CALCIUM 9.2 mg/dL (8.5-10.4); CARBON DIOXIDE 21 mEq/l (22-31); CHLORIDE 109 mEq/L (97-110); CREATININE 0.7 mg/dL (0.6-1.0); GLOMERULAR FILTRATION RATE > 60; GLUCOSE 90 mg/dL (70-100); POTASSIUM 3.5 mEq/L (3.5-5.2); SODIUM 142 mEq/L (134-144); TOTAL PROTEIN 6.9 g/dL (6.3-8.2)
[2017-01-29] MEDS ORDERED: HYDROmorphONE/DILAUDID 1 MG/ML INJ IVP ONE ×2 (12:14→13:55)
[2017-01-29] MEDS ORDERED: LORazepam 2 MG/ML INJ IVP ONE (12:14)
[2017-01-29] MEDS ORDERED: ONDANSETRON 4 MG/2 ML VIAL IVP ONE (12:14)
[2017-01-29] MEDS ORDERED: NS 1,000 ML IV ONE (13:21)
[2017-01-29] MEDS ORDERED: TERBUTALINE SULFATE 1 MG/ML VIAL SC ONE (13:56)
[2017-01-29] MEDS ORDERED: ONDANSETRON DISINTEGRATING 4 MG TAB PO PRN (15:49)
[2017-01-29] MEDS ORDERED: HYDROCODONE/APAP 5/325 TAB PO PRN (15:50)
[2017-01-29] MEDS: LR 1,000 ML IV SCH (16:00)
[2017-01-29] MEDS: oxyCODONE IR 5 MG TAB PO PRN ×2 (16:27→20:31)
[2017-01-29] MEDS: HYDROmorphONE/DILAUDID 1 MG/ML INJ IVP PRN ×2 (18:42→22:58)
--- NOTE | 2017-01-29 20:22 | GHP ---
[f rep st] PREOP HISTORY AND PHYSICAL DATE OF ADMISSION: 01/29/2017 ADMITTING DIAGNOSIS: Intrauterine at 8 and 4/7 weeks' gestation with severe right lower qu adrant pain, presumed nephrolithiasis. HISTORY OF PRESENT ILLNESS: Marilu is a 37-year-old 1, para 0, with a last menstrual period of 11/30/2016, and an EDC of 09/06/2017 which was confirmed by a 6- and an 8-week ultrasound. She pres ented complaining of a 3-week history of increasing right lower quadrant pain and also some vaginal s potting today. She reports that the pain began approximately 3 weeks ago. She says it is mostly loc alized to the right lower quadrant. It is stabbing in nature, but has cramping aspects, and it radia orlin to her lower pelvis and around to her flank and her back. She has episodes where it waxes and wa pauline in intensity, but has become very intense over the last few days. She was initially evaluated in the emergency department on 01/18/2017 for this pain. At that time, she had a pelvic ultrasound, wh ich revealed that she was . She had a confirmed IUP of 6 weeks 5 days at that point with a h eart beat of 117. Ovaries were visualized and were normal. She had an abdominal ultrasound and hardeep l ultrasound, which revealed some increased lymphadenopathy in the right lower quadrant. It could re present mesenteric adenitis, some mild hepatic steatosis, and an echogenic 3 mm foci in the mid and l ower right kidney could represent nonobstructive calculi. They did not see hydronephrosis or hydrour eter, or any evidence of obstruction, and no evidence of gallbladder disease as well. The patient wa s discharged home, was given Tylenol for pain management. She followed up in my office, still having complaints of pain, and then she began developing some bleeding and spotting, and presented back to the emergency department. On evaluation of the ultrasound today, has a viable IUP of 8 weeks 4 days, improved heart rate in the 150s, and had a small subchorionic hemorrhage 6 x 4 x 5 mm that was new since the previous study, lidia carter explanation for her spotting. Abdominal and renal ultrasound was again repeated, and there was no change. The patient was having severe pain. She has been admitted for pain control. She has had IV fluids and pain medication, and her urine is strained, and during the course of her hospitalizati on today, she has had small, granular pieces seen in the strain of her urine, likely no further nephr olithiasis. On the patient's laboratory evaluation, white count is 6.38, hemoglobin 12.5, hematocrit 37.0, platel ets 225. Chemistries were normal. Urinalysis was negative for blood. Gonorrhea and chlamydia cultu res have been negative. No other labs were performed. The patient has been admitted for presumed nephrolithiasis, for IV hydration and pain control, and if she does not improve, we will have a urology consult. PAST OBSTETRICAL HISTORY: The patient has no significant past obstetrical history. This is her firs t , and this is an unplanned , but they are happy. PAST GYNECOLOGICAL HISTORY: Significant for endometriosis. She has had 2 laparoscopies for endometr iosis, in 2003 and 2008. She had an appendectomy during 1 of those surgeries. She also had a ruptur ed ovarian cyst and a bowel injury that was repaired. PAST MEDICAL HISTORY: She has had significant history of migraines with aura. Has been disabled for the past 4 years. Has had TIA events during these headaches. Had a total of 51 ER visits during th e course of the last 4 years. Things have improved over the last few months with her headaches. She has a significant history of alcoholism and drug abuse. She reports that she has been sober from co kal and marijuana for 14 years, and sober from alcohol for 8 years. PAST SURGICAL HISTORY: Tonsillectomy, laparoscopy x2, including appendectomy. ALLERGIES: She is allergic to Haldol; it gave her a possible CVA. She is allergic to the triptans. She is weaning off her Klonopin right now. She was on that prior to diagnosis. She takes vitamin D and calcium. Does not take vitamins because it contributes to her headaches. SOCIAL HISTORY: She is single. She is in a relationship with Ranjit. She is currently unemployed and disabled, secondary to her headaches. She denies tobacco, alcohol, and drug use now. FAMILY HISTORY: Paternal grandfather of heart disease. Paternal aunt had breast cancer and not dori else. REVIEW OF SYSTEMS: Negative for fever, chills, nausea, vomiting, diarrhea, any cardiovascular, respi ratory, psychological, or any other systemic symptoms. Only pertinent as above in HPI. PHYSICAL EXAMINATION: VITAL SIGNS: Currently she is afebrile. Temp is 36.7, blood pressure is 99/6 1, pulse is 89. She is 95% on room air. GENERAL: She is a thin, white woman in moderate distress s econdary to pain. She is writhing in pain. LUNGS: Clear to auscultation bilaterally. HEART: Regu lar rate and rhythm. No murmurs. ABDOMEN: Soft, nondistended. Pain is in the right lower quadrant , rebound and guarding. PELVIC: Exam was deferred. LABS AND STUDIES: As above in HPI. ASSESSMENT AND PLAN: 37-year-old 1, para 0 at 8 and 4/7 weeks' gestation, admitted for IV fl uids and pain control for presumed diagnosis of nephrolithiasis. The patient will be observed overni ght with heavy IV fluid rate as well as pain control. If she does not improve dramatically by mariela paredes, we will consider urological consult. /[id number]/MODL
[2017-01-30] MEDS: LR 1,000 ML IV SCH (00:28)
[2017-01-30] MEDS: oxyCODONE IR 5 MG TAB PO PRN ×4 (00:29→16:31)
[2017-01-30] MEDS: HYDROmorphONE/DILAUDID 1 MG/ML INJ IVP PRN ×3 (02:56→11:29)
[2017-01-30] MEDS ORDERED: PROMETHAZINE HCL 25 MG TAB PO PRN (04:22)
--- NOTE | 2017-01-30 04:35 | SOAPPROG ---
MAHENDRA Progress Note Assessment/Plan: Assessment: [id number] SAB (@8-4wks) ?nephrolithiasis Plan: POC sent to [facility] PRN will monitor bleeding consider urology consult in AM 01/30/17 04:31 01/30/17 04:36 Subjective: Pt reports bleeding and passing tissue and clots. She is reporting constant pain at this time, localized to RLQ. She denies any heavy bleeding. Patients father is at BS. Objective: Vital Signs Temp Pulse Resp BP Pulse Ox 36.5 C 88 16 111/75 96 01/30/17 00:20 01/30/17 00:20 01/30/17 00:20 01/30/17 00:20 01/30/17 00:20 01/28/17 01/29/17 01/30/17 05:59 05:59 05:59 Intake Total 600 Output Total 650 Balance -50 VSS Exam: constitutional: WNWF HEENT: normocephalic, atraumatic Abd: soft, nontender, nondistended Lochia: min rubra, no clots noted Extremities: WNL, no edema Official US done: results pending Physical Exam - Physical Exam General Appearance: WD/WN, alert Abdomen: non-tender, soft Pelvic Exam: deferred Rectal: deferred Skin: normal color, warm/dry Extremities: non-tender Neuro/Psych: no motor/sensory deficits, oriented x 3 ICD10 Worksheet Patient Problems: Problems Problem Status Onset Abdominal pain Acute Migraine Acute
[2017-01-30 06:16] VITALS: O2SAT 97
[2017-01-30 09:48] VITALS: BP 106/74; PULSE 110; RESP 22; TEMP 98.9
--- NOTE | 2017-01-30 10:09 | SOAPPROG ---
SOAP Progress Note Assessment/Plan: Assessment: 37 yo s/p spontaneous overnight with continued RLQ/R flank pain. Plan: 01/30/17 10:04 1. Continued pain management and support. 2. Consult hospitalist service for assistance with pain management and work-up of etiology of right flank pain. Subjective: Patient reports that she passed tissue and blood clots at 4 AM today. She reports uterine cramping prior to and during miscarriage. She reports minimal vaginal bleeding since. She reports right-sided stabbing pain (comes in waves) in right flank and now more so in RLQ for past 3 weeks. She states that this pain persists s/p miscarriage. She has been straining her urine since she was admitted yesterday and reports she has noted some particulate matter but no obvious stones. She underwent US yesterday which noted IUP and possible right renal/ureteral stones. She reports moderate to severe pain persists. She states she is not ready for discharge home. Objective: Vital Signs Temp Pulse Resp BP Pulse Ox 37.2 C 110 H 22 H 106/74 97 01/30/17 08:00 01/30/17 08:00 01/30/17 08:00 01/30/17 08:00 01/30/17 08:00 01/29/17 01/30/17 01/31/17 05:59 05:59 05:59 Intake Total 2400 Output Total 650 Balance 1750 General: AAOx3, NAD Lungs: Clear, no wheezes Heart: RRR, no murmurs appreciated Abdomen: bowel sounds present, non-distended, non-tender, no obvious TTP in RUQ , LUQ, LLQ, suprapubic or either flank, voluntary guarding on palpation of RLQ. Pelvic exam deferred. Extrem: no significant swelling or edema in BLE ICD10 Worksheet Patient Problems: Problems Problem Status Onset Abdominal pain Acute Migraine Acute
[2017-01-30] MEDS ORDERED: KETOROLAC 30 MG/1 ML SDV IVP ONE (13:37)
[2017-01-30] MEDS ORDERED: IOPAMIDOL (ISOVUE-300) 100 ML BTL ONE (13:40)
[2017-01-30 14:55] LABS: % IMMATURE GRANULYOCYTES 0.2 % (0.0-1.1); ABSOLUTE IMMATURE GRANULOCYTES 0.01 10^3/uL (0.00-0.10); ADD DIFF? NO; ADD MORPH? NO; ADD SCAN? NO; ATYPICAL LYMPHOCYTE FLAG 10 (0-99); FRAGMENT RBC FLAG 0 (0-99); HEMATOCRIT 29.8 % (38.0-47.0); HEMOGLOBIN 10.1 g/dL (12.6-16.3); LEFT SHIFT FLG 0 (0-99); LIPEMIA HEMOLYSIS FLAG 90 (0-99); MEAN CELL HEMOGLOBIN 28.9 pg (27.9-34.1); MEAN CELL HEMOGLOBIN CONCENTR. 33.9 g/dL (32.4-36.7); MEAN CELL VOLUME 85.4 fL (81.5-99.8); MEAN PLATELET VOLUME 10.3 fL (8.7-11.7); PLATELET CLUMPS FLAG 0 (0-99); PLATELET COUNT 169 10^3/uL (150-400); RED BLOOD CELL COUNT 3.49 10^6/uL (4.18-5.33); RED CELL DISTRIBUTION WIDTH 13.2 % (11.5-15.2)
[2017-01-30 14:57] LABS: COLOR COLORLESS; LEUKOCYTE ESTERASE,URINE NEGATIVE (NEGATIVE); NITRITE,URINE NEGATIVE (NEGATIVE)
[2017-01-30 15:16] LABS: ALANINE AMINOTRANSFERASE 42 IU/L (9-52); ALBUMIN 3.3 g/dL (3.5-5.0); ALKALINE PHOSPHATASE 51 IU/L (38-126); ASPARTATE AMINOTRANSFERASE 25 IU/L (14-46); BILIRUBIN,TOTAL 0.5 mg/dL (0.1-1.4); CALCIUM 8.9 mg/dL (8.5-10.4); CARBON DIOXIDE 25 mEq/l (22-31); CHLORIDE 102 mEq/L (97-110); CREATININE 0.6 mg/dL (0.6-1.0); GLOMERULAR FILTRATION RATE > 60; GLUCOSE 88 mg/dL (70-100); POTASSIUM 3.6 mEq/L (3.5-5.2); TOTAL PROTEIN 5.8 g/dL (6.3-8.2)
[2017-01-30 15:24] LABS: ANION GAP 9 mEq/L (8-16); SODIUM 136 mEq/L (134-144)
--- NOTE | 2017-01-30 16:45 | PDDCSUM ---
Discharge Summary Discharge Summary: DATE OF ADMISSION: 01/29/2017 DATE OF DISCHARGE: 01/30/2017 ADMITTING PHYSICIAN: Alisson Oliva MD DISCHARGING PHYSICIAN: Dominic Sepulveda MD ADMITTING DIAGNOSIS: 37 yo G1 with IUP @ 8 weeks gestational age admitted from ED with acute pelvic pain. HISTORY OF PRESENT ILLNESS/HOSPITAL COURSE: The patient is a 37 yo G1 WF @ 8 weeks gestation who presented to ED on 01/29/17 with acute right-sided pain. IUP was confirmed with heart activity also confirmed on transvaginal ultrasound. Patient was in pain and admitted to post- unit for observation. Abdominal US was also performed and concern for possible urolithiasis was mentioned. Patient was given IV narcotics, was straining her urine overnight, and passed large blood clots and tissue from vagina at approximately 4AM on 01/30/17. Follow-up transvaginal US was performed s/p suspected miscarriage. US revealed thickened endometrial lining but not obvious gestational sac, pole or any heart activity. CT scan of abdomen was also performed with revealed thickened endometrial lining, small free fluid near uterus and right ovary, evidence of prior appendectomy, and no evidence of urinary tract obstruction. By late afternoon, patient reported less pain and minimal vaginal bleeding. No obvious stone had been collected on straining of urine. Patient reported that her past medical history is significant for prior diagnostic laparoscopy for ovarian cysts and pelvic pain. She has previously been diagnosed with endometriosis and treated with laparoscopic fulguration of lesions. Discharge plan will be to discharge home with small dose of PO [place] 5/ 325 (#20, no refills) and close follow-up at [facility] with Evelyn Salas CNM, s/p miscarriage and to develop a coordinated plan for management of chronic pelvic pain. PROCEDURES PERFORMED: Pelvic US x 2, CT Abd/Pelvis COMPLICATIONS: None. FINAL DIAGNOSES: 1. Spontaneous @ 8 weeks gestation 2. Chronic pelvic pain DISCHARGE INSTRUCTIONS: Call for increased pain, fever or increased bleeding. Return to clinic in 5-10 days. DIET: Advance as tolerated. ACTIVITY: Advance as tolerated. Pelvic rest for 6 weeks. Nothing to be inserted into the vagina for 1-2 weeks, i.e. no tampons, douche or sex. MEDICATIONS AND FOLLOWUP: See above.
[2017-01-30] MEDS ORDERED: HYDROCODONE/APAP 5/325 TAB PO PRN (16:47)
--- NOTE | 2017-01-30 18:37 | GCON ---
[f rep st] CONSULTATION MEDICINE CONSULTATION DATE OF CONSULTATION: 01/30/2017 REASON FOR CONSULTATION: Right lower quadrant abdominal pain. HISTORY OF PRESENT ILLNESS: The patient is a 37-year-old female who is 1, para 0, who was admitted to the hospital last night with vaginal bleeding. She was seen in the emergency department on 01/18/2017, and diagnosed with intrauterine . At that time, it was noted the heart rate was only in the 110s. An obstetric ultrasound on the morning of admission showed intrauterine of 8 weeks and 1 day with a heart rate of 167 beats per minute. However, throughout the course of the night, she had more intense vaginal bleeding and passed several clots with tissue noted. Repeat ultrasound done early this morning showed evidence of an interval miscarriage with heterogeneous material suggesting blood products and/or retained products of conception. She was seen by the [facility] service and was monitored for bleeding. Her products of conception were sent for pathology. She was ultimately diagnosed with a spontaneous at 8 weeks and 4 days. The patient reported chronic right lower quadrant abdominal pain, which was worse. She did not feel comfortable discharging. Medicine was consulted for opinion regarding the source of her pain. The patient gives a history of endometriosis. She has had abdominal surgeries including an appendectomy and laparoscopy x2 for history of endometriosis. She states her pain started approximately 4 weeks ago and has been in her right side. Now, more localized in her right lower quadrant. This has not been associated with any fevers or chills. She has had no nausea, vomiting, or diarrhea. She has had multiple ultrasounds over the past few weeks. There was some question of a right-sided nephrolithiasis. However, she has had no hematuria on her urinalysis on admission. In the hospital, she has required oxycodone every 4 hours and 1 mg of IV Dilaudid every 4 hours for pain control. Her labs on arrival yesterday were unremarkable with a normal white count, normal kidney function and normal liver enzymes. Again, her urinalysis was negative for infection or red cells. PAST MEDICAL HISTORY: 1. History of migraine headaches. The patient describes this as a mysterious neurologic illness that lasted 4-1/2 years. 2. History of TIAs secondary to headaches. 3. History of alcohol abuse and polysubstance abuse including cocaine and marijuana. She is reportedly in remission from drugs for 14 years and in remission from alcohol for 8 years. 4. High healthcare utilizer with a total of 51 ER visits in the past 4 years. PAST SURGICAL HISTORY: 1. Tonsillectomy. 2. Laparoscopy x2. 3. Appendectomy. MEDICATIONS: Please see [facility] for complete and updated outpatient medication list. ALLERGIES: She has allergies to Haldol, triptans, gluten, ergotamine. FAMILY HISTORY: Her paternal grandfather had heart disease. Paternal aunt had breast cancer. SOCIAL HISTORY: The patient is single. She has a significant other, Ranjit, who is present at the bedside. She is currently unemployed and disabled secondary to her headaches. She denies recent use of alcohol, tobacco or drugs. REVIEW OF SYSTEMS: A 10-point review of systems was performed and is negative except as per HPI. PHYSICAL EXAMINATION: VITAL SIGNS: Temperature is 37.2, blood pressure 106/74 , heart rate 87-110, respiratory rate 16. She is 97% on room air. GENERAL: The patient is awake, alert and oriented. In no acute distress, although she does appear uncomfortable with frequent facial grimacing. HEENT: Head is atraumatic, normocephalic. Pupils are equal, round and react to light. Extraocular muscles intact. Oropharynx is clear. Mucous membranes are dry. NECK: Supple. There is no JVD. HEART: Regular rate and rhythm without murmur. LUNGS: Clear to auscultation bilaterally. ABDOMEN: Soft, nondistended. She has significant tenderness to palpation mostly in her right lower quadrant. There are no peritoneal signs. This is not an acute abdomen. EXTREMITIES: Without cyanosis, clubbing or edema. Warm and well perfused. NEUROLOGIC: Grossly nonfocal. LABORATORY DATA: Yesterday morning, urinalysis was negative. Yesterday morning, CBC showed a normal white count, hemoglobin of 12.5. Complete metabolic panel was essentially normal. Lipase was normal. Beta HCG quant was 67,445. IMAGING: As described above. Obstetric ultrasound on 01/29/2017, showed a viable intrauterine . A repeat ultrasound 01/30/2017, after heavy vaginal bleeding with passage of tissue, showed the gestational sac, pole and yolk sac were no longer identifiable with material in the endometrial cavity , most likely representing blood products. ASSESSMENT AND PLAN: The patient is a 37-year-old female with history of chronic pelvic pain, prior appendectomy and laparoscopy x2 for endometriosis with recent spontaneous miscarriage at 8 weeks and 4 days, with has ongoing abdominal pain 1. Acute on chronic pelvic pain. The patient is concerned about a kidney stone. We discussed that her urinalysis was negative for blood. I will repeat a urinalysis now and try to avoid contamination from her vaginal bleeding as we may see hematuria due to vaginal bleeding. Given that she is no longer , we will go ahead and proceed with a CT abdomen pelvis with contrast. I am most suspicious for possible pain from adhesions given her prior surgeries. Also consider ovarian torsion or abscess though these diagnoses seem less likely as she has had at least 4 ultrasounds in the past 10 days and her pain has been present for over 4 weeks. We will see what her CT shows, though I suspect this may be low yield. I do not think there are any indications for surgical evaluation at this time. She has no obstructive symptoms. She may warrant referral to a surgeon in the outpatient setting to determine if she needs elective laparoscopy for lysis of adhesions. I would recommend attempts at managing this with non-opioid therapy as I do note her heavy use of opiates in the hospital. 2. Spontaneous . The patient may be having worsening of her symptoms after her miscarriage in the setting of abdominal cramping. We will give a dose of Toradol to see if this helps her symptoms. Products of conception were sent for pathology. I will defer further management of followup on her miscarriage to her OBGYN service. 3. History of migraine headaches. The patient is headache-free at this time. She should follow up with her primary care physician. 4. Deep venous thrombosis prophylaxis. Patient is low risk. I do not anticipate a prolonged hospitalization. She is ambulating just fine. CODE STATUS: Patient is full code. DISPOSITION: Patient is observation status. If her CT scan is reassuring, I think she is safe for discharge home with close outpatient followup with her primary care physician and consideration of outpatient surgical evaluation for the possibility of chronic pain secondary to adhesions. /[id number]/MODL MTDD
== END 2017-01-30 17:15 | disposition home or self-care (01) ==
LOC: FOB 15:00
PROVIDERS: ADMIT Obstetrics & Gynecology; ATTEND Obstetrics & Gynecology
DX: O03.9 Complete or unspecified spontaneous abortion without complication (principal); Z3A.08 8 weeks gestation of pregnancy
CPT/HCPCS: 74177; 76700; 76801; 93005; 96361; 96374; 96375; 96376; 99285; G0378; J1170; J2060; J2405; Q9967

== ENCOUNTER 2017-02-10 17:55 | Observation (INO) | payer OTHER ==
[2017-02-10] MEDS ORDERED: ONDANSETRON 4 MG/2 ML VIAL IVP ONE (19:25)
[2017-02-10] MEDS ORDERED: NS 1,000 ML IV ONE (19:25)
[2017-02-10] MEDS ORDERED: HYDROmorphONE/DILAUDID 1 MG/ML INJ IVP ONE ×3 (19:25→21:54)
[2017-02-10 19:43] LABS: % IMMATURE GRANULYOCYTES 0.3 % (0.0-1.1); ABSOLUTE IMMATURE GRANULOCYTES 0.02 10^3/uL (0.00-0.10); ADD DIFF? NO; ADD MORPH? NO; ADD SCAN? NO; ATYPICAL LYMPHOCYTE FLAG 10 (0-99); FRAGMENT RBC FLAG 0 (0-99); LEFT SHIFT FLG 0 (0-99); LIPEMIA HEMOLYSIS FLAG 90 (0-99); MEAN CELL HEMOGLOBIN 29.6 pg (27.9-34.1); MEAN CELL HEMOGLOBIN CONCENTR. 35.3 g/dL (32.4-36.7); MEAN CELL VOLUME 83.7 fL (81.5-99.8); MEAN PLATELET VOLUME 10.5 fL (8.7-11.7); PLATELET CLUMPS FLAG 0 (0-99); PLATELET COUNT 248 10^3/uL (150-400); RED BLOOD CELL COUNT 4.06 10^6/uL (4.18-5.33)
[2017-02-10 19:46] LABS: ALANINE AMINOTRANSFERASE 28 IU/L (9-52); ALBUMIN 4.2 g/dL (3.5-5.0); ALKALINE PHOSPHATASE 52 IU/L (38-126); ANION GAP 10 mEq/L (8-16); ASPARTATE AMINOTRANSFERASE 15 IU/L (14-46); BILIRUBIN,TOTAL 0.7 mg/dL (0.1-1.4); BILIRUBIN-CONJUGATED 0.3 mg/dL (0.0-0.5); BILIRUBIN-UNCONJUGATED 0.4 mg/dL (0.0-1.1); CALCIUM 9.4 mg/dL (8.5-10.4); CARBON DIOXIDE 20 mEq/l (22-31); CHLORIDE 106 mEq/L (97-110); CREATININE 0.8 mg/dL (0.6-1.0); GLOMERULAR FILTRATION RATE > 60; GLUCOSE 80 mg/dL (70-100); POTASSIUM 3.9 mEq/L (3.5-5.2); SODIUM 136 mEq/L (134-144); TOTAL PROTEIN 6.9 g/dL (6.3-8.2)
--- NOTE | 2017-02-10 19:51 | EDPHY ---
H & P Time Seen by Provider: 02/10/17 18:51 HPI/ROS: CHIEF COMPLAINT: Abdominal pain HISTORY OF PRESENT ILLNESS: This is a 37-year-old female presents to the emergency department with a primary complaint of ongoing right sided abdominal pain. Patient reports that she has had abdominal discomfort for approximately 4 and half weeks. [No fever, chills, chest pain, shortness of breath, palpitations, vomiting, diarrhea, urinary complaints, headache, lightheadedness. ] REVIEW OF SYSTEMS: Aside from elements discussed in the HPI, a comprehensive 10-point review of systems was reviewed and is negative. PAST MEDICAL HISTORY: [ ] SOCIAL HISTORY: [ ] Smoking Status: Former smoker Constitutional: Initial Vital Signs Temperature (C) 37.4 C 02/10/17 18:15 Heart Rate 106 H 02/10/17 18:15 Respiratory Rate 16 02/10/17 18:15 Blood Pressure 122/98 H 02/10/17 18:15 O2 Sat (%) 98 02/10/17 18:15 O2 Delivery Mode Room Air Allergies/Adverse Reactions: gluten [Gluten] Allergy (Unknown, Verified 02/10/17 18:14) CELIAC, ABD CRAMPING ergotamine Allergy (Verified 02/10/17 18:14) haloperidol [From Haldol] Allergy (Verified 02/10/17 18:14) haloperidol lactate [From Haldol] Allergy (Verified 02/10/17 18:14) [id number] Antimigraine Agents Allergy (Verified 02/10/17 18:14) Home Medications: Medication Instructions Recorded clonazePAM [klonoPIN (*)] 1.5 mg PO HS 11/15/16 Medical Decision Making - Diagnostics Imaging Results: Imaging Impressions Pelvic/Renal Ultrasound 02/10/17 19:26 Impression: 1. Heterogenous endometrium measuring 1 cm thick with detectable vascularity may represent retained products of conception. 2. Mostly hypoechoic material in the cervical canal may represent clot. Dr. Vázquez discussed these findings by telephone with ordering Dr. Jess Royal at 2106 hours on 02/10/2017 - Data Points Laboratory Results: Laboratory Results 02/10/17 18:58 02/10/17 18:58 02/10/17 02/10/17 02/10/17 20:30 18:58 18:58 WBC RBC Hgb Hct MCV MCH MCHC RDW Plt Count MPV Neut % (Auto) Lymph % (Auto) [place] % (Auto) Eos % (Auto) Baso % (Auto) Nucleat RBC Rel Count Absolute Neuts (auto) Absolute Lymphs (auto) Absolute Monos (auto) Absolute Eos (auto) Absolute Basos (auto) Absolute Nucleated RBC Immature Gran % Immature Gran # Sodium Potassium Chloride Carbon Dioxide Anion Gap BUN Creatinine Estimated GFR Glucose Calcium Total Bilirubin Conjugated Bilirubin Unconjugated Bilirubin AST ALT Alkaline Phosphatase Total Protein Albumin Lipase Beta HCG, Qual Beta HCG, Quant 370.47 mIU/mL H mIU/mL (0.00-4.83) Urine Color YELLOW Urine Appearance HAZY Urine pH 5.0 (5.0-7.5) Ur Specific [place] 1.012 (1.002-1.030) Urine Protein NEGATIVE (NEGATIVE) Urine Ketones TRACE H (NEGATIVE) Urine Blood 3+ H (NEGATIVE) Urine Nitrate NEGATIVE (NEGATIVE) Urine Bilirubin NEGATIVE (NEGATIVE) Urine Urobilinogen NEGATIVE EU EU (0.2-1.0) Ur Leukocyte Esterase TRACE H (NEGATIVE) Urine RBC 1-3 /hpf /hpf (0-3) Urine WBC 5-10 /hpf H /hpf (0-3) Ur Epithelial Cells 1+ /lpf /lpf (NONE-1+) Urine Glucose NEGATIVE (NEGATIVE) Urine Opiates Screen NON-NEGATIVE H (NEGATIVE) Urine Barbiturates NEGATIVE (NEGATIVE) Ur Phencyclidine Scrn NEGATIVE (NEGATIVE) Ur Amphetamine Screen NEGATIVE (NEGATIVE) U Benzodiazepines Scrn NEGATIVE (NEGATIVE) Urine Cocaine Screen NEGATIVE (NEGATIVE) U Marijuana (THC) Screen NEGATIVE (NEGATIVE) Monoscreen NEGATIVE (NEGATIVE) 02/10/17 02/10/17 02/10/17 18:58 18:58 18:58 WBC 6.51 10^3/uL 10^3/uL (3.80-9.50) RBC 4.06 10^6/uL L 10^6/uL (4.18-5.33) Hgb 12.0 g/dL L g/dL (12.6-16.3) Hct 34.0 % L % (38.0-47.0) MCV 83.7 fL fL (81.5-99.8) MCH 29.6 pg pg (27.9-34.1) MCHC 35.3 g/dL g/dL (32.4-36.7) RDW 13.0 % % (11.5-15.2) Plt Count 248 10^3/uL 10^3/uL (150-400) MPV 10.5 fL fL (8.7-11.7) Neut % (Auto) 57.5 % % (39.3-74.2) Lymph % (Auto) 34.7 % % (15.0-45.0) [place] % (Auto) 6.9 % % (4.5-13.0) Eos % (Auto) 0.3 % L % (0.6-7.6) Baso % (Auto) 0.3 % % (0.3-1.7) Nucleat RBC Rel Count 0.0 % % (0.0-0.2) Absolute Neuts (auto) 3.74 10^3/uL 10^3/uL (1.70-6.50) Absolute Lymphs (auto) 2.26 10^3/uL 10^3/uL (1.00-3.00) Absolute Monos (auto) 0.45 10^3/uL 10^3/uL (0.30-0.80) Absolute Eos (auto) 0.02 10^3/uL L 10^3/uL (0.03-0.40) Absolute Basos (auto) 0.02 10^3/uL 10^3/uL (0.02-0.10) Absolute Nucleated RBC 0.00 10^3/uL 10^3/uL (0-0.01) Immature Gran % 0.3 % % (0.0-1.1) Immature Gran # 0.02 10^3/uL 10^3/uL (0.00-0.10) Sodium 136 mEq/L mEq/L (134-144) Potassium 3.9 mEq/L mEq/L (3.5-5.2) Chloride 106 mEq/L mEq/L (97-110) Carbon Dioxide 20 mEq/l L mEq/l (22-31) Anion Gap 10 mEq/L mEq/L (8-16) BUN 9 mg/dL mg/dL (7-23) Creatinine 0.8 mg/dL mg/dL (0.6-1.0) Estimated GFR > 60 Glucose 80 mg/dL mg/dL (70-100) Calcium 9.4 mg/dL mg/dL (8.5-10.4) Total Bilirubin 0.7 mg/dL mg/dL (0.1-1.4) Conjugated Bilirubin 0.3 mg/dL mg/dL (0.0-0.5) Unconjugated Bilirubin 0.4 mg/dL mg/dL (0.0-1.1) AST 15 IU/L IU/L (14-46) ALT 28 IU/L IU/L (9-52) Alkaline Phosphatase 52 IU/L IU/L (38-126) Total Protein 6.9 g/dL g/dL (6.3-8.2) Albumin 4.2 g/dL g/dL (3.5-5.0) Lipase 110 IU/L IU/L (23-300) Beta HCG, Qual POSITIVE Beta HCG, Quant Urine Color Urine Appearance Urine pH Ur Specific [place] Urine Protein Urine Ketones Urine Blood Urine Nitrate Urine Bilirubin Urine Urobilinogen Ur Leukocyte Esterase Urine RBC Urine WBC Ur Epithelial Cells Urine Glucose Urine Opiates Screen Urine Barbiturates Ur Phencyclidine Scrn Ur Amphetamine Screen U Benzodiazepines Scrn Urine Cocaine Screen U Marijuana (THC) Screen Monoscreen Medications Given: Discontinued Medications Hydromorphone HCl (Dilaudid) 1 mg IVP EDNOW ONE Stop: 02/10/17 19:26 Last Admin: 02/10/17 19:37 Dose: 1 mg Hydromorphone HCl (Dilaudid) 1 mg IVP EDNOW ONE Stop: 02/10/17 20:28 Last Admin: 02/10/17 20:35 Dose: 1 mg Hydromorphone HCl (Dilaudid) 1 mg IVP EDNOW ONE Stop: 02/10/17 21:55 Last Admin: 02/10/17 21:56 Dose: 1 mg Sodium Chloride (Ns) 1,000 mls @ 0 mls/hr IV EDNOW ONE; Wide Open PRN Reason: Protocol Stop: 02/10/17 19:26 Last Admin: 02/10/17 19:42 Dose: 1,000 mls Ketorolac Tromethamine (Toradol) 15 mg IVP EDNOW ONE Stop: 02/10/17 20:48 Last Admin: 02/10/17 21:17 Dose: 15 mg Ondansetron HCl (Zofran) 4 mg IVP EDNOW ONE Stop: 02/10/17 19:26 Last Admin: 02/10/17 19:37 Dose: 4 mg Promethazine HCl (Phenergan) 6.25 mg IVP ONCE ONE Stop: 02/10/17 20:41 Last Admin: 02/10/17 20:42 Dose: 6.25 mg Departure - Departure Condition: Fair Referrals: Marisa Jansen PA [Primary Care Provider] - As per Instructions
--- NOTE | 2017-02-10 20:36 | CPEKG ---
Heart Rate: 102 RR Interval: 588 P-R Interval: 152 QRSD Interval: 84 QT Interval: 336 QTC Interval: 438 P [place]: 79 QRS [place]: 79 T Wave [place]: -13 EKG Severity - BORDERLINE ECG - EKG Impression: SINUS TACHYCARDIA EKG Impression: BORDERLINE T ABNORMALITIES, DIFFUSE LEADS Electronically Signed By: Jess Royal 10-Feb-2017 23:07:37
[2017-02-10] MEDS ORDERED: PROMETHAZINE HCL 25 MG/ML INJ IVP ONE (20:40)
[2017-02-10] MEDS ORDERED: PROMETHAZINE HCL 25 MG/ML INJ ONE (20:41)
[2017-02-10] MEDS ORDERED: KETOROLAC 30 MG/1 ML SDV IVP ONE (20:47)
[2017-02-10 21:58] LABS: COLOR YELLOW; LEUKOCYTE ESTERASE,URINE TRACE (NEGATIVE); NITRITE,URINE NEGATIVE (NEGATIVE)
--- NOTE | 2017-02-10 23:01 | EDPHY ---
H & P Stated Complaint: r sided abd pain saw dr weston yesterday/miscarriage 10 days ago/ freq visits Time Seen by Provider: 02/10/17 18:51 HPI/ROS: CHIEF COMPLAINT: Ongoing abdominal pain HISTORY OF PRESENT ILLNESS: This is a 37-year-old female who presents the emergency department reporting that she has been having problems with right lower quadrant abdominal pain for the last 4 1/2 weeks. Patient had pain for about a week and a half when she was evaluated in the emergency department on January 18. At that time she was found to be . Ultrasound demonstrated a 6 week IUP with heart tones. Patient was discharged home but returned on January 29 reporting vaginal bleeding and ongoing pain. She also had a syncopal episode. At that time she was admitted to the hospital with a working diagnosis of a kidney stone which was causing her abdominal discomfort. An ultrasound done in the emergency department demonstrated an 8 week IUP. While in the hospital, the patient had a spontaneous miscarriage with a repeat ultrasound demonstrating no intrauterine . Patient did have a CT scan with IV contrast performed after her miscarriage with no specific findings to explain her ongoing right lower quadrant discomfort. She was noted to pass several crystals in her urine and again was felt to potentially have a kidney stone which had been causing her discomfort. She was discharged from the hospital on January 30. Patient was then seen at [facility] on February 02 with recurrent abdominal discomfort and worsening vaginal bleeding. Ultrasound done at that time was concerning for potential retained products of conception. Since that time the patient has had serial quants which has been noted to be falling. She presents tonight stating that while she was better for several days after she was seen at [facility], but last night she again developed significant right lower quadrant abdominal discomfort, right flank pain, nausea, as well as pain between her shoulder blades. She continues to have a small amount of vaginal bleeding but states that is much better than previously. Additionally, the patient reports night sweats. She also reports that she has lost a significant amount of weight over the last several months. Patient was evaluated by Dr. Heraclio Weston yesterday secondary to lymphadenopathy in the axilla as well as adenopathy noted on her pelvic ultrasounds. She has a low-grade fever on arrival to the emergency department but otherwise has not noted fevers. No urinary complaints. No burning when she urinates. No noted blood in the urine. No vomiting although she has been complaining of significant nausea. REVIEW OF SYSTEMS: Aside from elements discussed in the HPI, a comprehensive 10-point review of systems was reviewed and is negative. PAST MEDICAL HISTORY: Former alcoholic, endometriosis, GI bleeding, chronic migraines. SOCIAL HISTORY: Here with her parents. Nonsmoker. VITAL SIGNS Reviewed by me. GENERAL: Thin, pale female. Very uncomfortable appearing. Resting with her legs curled up. HEENT: Atraumatic. Eyes: No icterus, no injection. Mouth: moist mucous membranes. No erythema or lesions. Neck: supple with no adenopathy. LUNGS: Clear to auscultation bilaterally, no wheezes, rhonchi or rales. CARDIAC: Regular rate and rhythm, no rubs, murmurs or gallops. ABDOMEN: Soft, significant right lower quadrant tenderness palpation. Suprapubic tenderness. No guarding or rebound. BACK: Right-sided CVA tenderness. EXTREMITIES: No trauma. No edema. Range of motion is normal throughout. NEURO: Alert and oriented, grossly nonfocal. SKIN: Warm and dry, no rash. PSYCHIATRIC: Normal mentation, no agitation. - Personal History LMP (Females 10-55): Now Current Tetanus/Diphtheria Vaccine: Yes Tetanus Vaccine Date: 2012 - Medical/Surgical History Hx Asthma: No Hx Chronic Respiratory Disease: No Hx Diabetes: No Hx Cardiac Disease: No Hx Renal Disease: No Hx Cirrhosis: No Hx Alcoholism: Yes Hx HIV/AIDS: No Hx Splenectomy or Spleen Trauma: No Other PMH: GI bleed, chronic migraines, chronic pain, Recoverying Alcoholic- sober, endometriosis - Social History Smoking Status: Former smoker Constitutional: Initial Vital Signs Temperature (C) 37.4 C 02/10/17 18:15 Heart Rate 106 H 02/10/17 18:15 Respiratory Rate 16 02/10/17 18:15 Blood Pressure 122/98 H 02/10/17 18:15 O2 Sat (%) 98 02/10/17 18:15 O2 Delivery Mode Room Air Allergies/Adverse Reactions: gluten [Gluten] Allergy (Unknown, Verified 02/10/17 18:14) CELIAC, ABD CRAMPING ergotamine Allergy (Verified 02/10/17 18:14) haloperidol [From Haldol] Allergy (Verified 02/10/17 18:14) haloperidol lactate [From Haldol] Allergy (Verified 02/10/17 18:14) [id number] Antimigraine Agents Allergy (Verified 02/10/17 18:14) Home Medications: Medication Instructions Recorded clonazePAM [klonoPIN (*)] 1.5 mg PO HS 11/15/16 Medical Decision Making - Diagnostics EKG Interpretation: 12-LEAD EKG: Please see the full report in [facility]. My interpretation: Sinus rhythm, nonspecific diffuse T-wave abnormalities Imaging Results: Imaging Impressions Pelvic/Renal Ultrasound 02/10/17 19:26 Impression: 1. Heterogenous endometrium measuring 1 cm thick with detectable vascularity may represent retained products of conception. 2. Mostly hypoechoic material in the cervical canal may represent clot. Dr. Vázquez discussed these findings by telephone with ordering Dr. Jess Royal at 2106 hours on 02/10/2017 Imaging: Discussed imaging studies w/ silverlight developer Radiologist ED Course/Re-evaluation: 37-year-old female presenting with recurrent right lower quadrant abdominal pain. She had right lower quadrant abdominal pain which prompted her to be seen in the emergency department and diagnosed with an intrauterine in the middle of January. Since that time she has miscarried the , and her pain to be due to a kidney stone. About a week ago she was seen at a local hospital for potential retained products. Today she reports her vaginal bleeding has improved but she developed significant right lower quadrant tenderness as well as right flank tenderness and pain between her shoulder blades yesterday Evaluation the emergency department included: Ultrasound demonstrating endometrial thickening at 1 cm with vascular component consistent with potential retained products. CT scan demonstrated somewhat enlarged uterus. No other significant findings. Patient's course was discussed with Dr. Alisson Oliva. While the patient may require further manager emergency department interventions to include cytotec versus D and C, at the present time she is not having taken vaginal bleeding requiring emergent treatment. Also, of note, the retained products would be a atypical cause of well localized right lower quadrant discomfort. Patient's course was also discussed with the hospitalist service. Patient will be admitted to Dr. Jagdeep Sue for further pain control. Differential Diagnosis: The differential diagnosis for the patient's abdominal pain was considered including but not limited to ovarian cyst, pelvic inflammatory disease, ovarian torsion, kidney stone, urinary tract infection, related complications. Consult/Admit Bed Type: Dr. Jagdeep Sue, Med Surg - Data Points Laboratory Results: Laboratory Results 02/10/17 18:58 02/10/17 18:58 02/10/17 02/10/17 02/10/17 20:30 18:58 18:58 WBC RBC Hgb Hct MCV MCH MCHC RDW Plt Count MPV Neut % (Auto) Lymph % (Auto) [place] % (Auto) Eos % (Auto) Baso % (Auto) Nucleat RBC Rel Count Absolute Neuts (auto) Absolute Lymphs (auto) Absolute Monos (auto) Absolute Eos (auto) Absolute Basos (auto) Absolute Nucleated RBC Immature Gran % Immature Gran # Sodium Potassium Chloride Carbon Dioxide Anion Gap BUN Creatinine Estimated GFR Glucose Calcium Total Bilirubin Conjugated Bilirubin Unconjugated Bilirubin AST ALT Alkaline Phosphatase Total Protein Albumin Lipase Beta HCG, Qual Beta HCG, Quant 370.47 mIU/mL H mIU/mL (0.00-4.83) Urine Color YELLOW Urine Appearance HAZY Urine pH 5.0 (5.0-7.5) Ur Specific [place] 1.012 (1.002-1.030) Urine Protein NEGATIVE (NEGATIVE) Urine Ketones TRACE H (NEGATIVE) Urine Blood 3+ H (NEGATIVE) Urine Nitrate NEGATIVE (NEGATIVE) Urine Bilirubin NEGATIVE (NEGATIVE) Urine Urobilinogen NEGATIVE EU EU (0.2-1.0) Ur Leukocyte Esterase TRACE H (NEGATIVE) Urine RBC 1-3 /hpf /hpf (0-3) Urine WBC 5-10 /hpf H /hpf (0-3) Ur Epithelial Cells 1+ /lpf /lpf (NONE-1+) Urine Glucose NEGATIVE (NEGATIVE) Urine Opiates Screen NON-NEGATIVE H (NEGATIVE) Urine Barbiturates NEGATIVE (NEGATIVE) Ur Phencyclidine Scrn NEGATIVE (NEGATIVE) Ur Amphetamine Screen NEGATIVE (NEGATIVE) U Benzodiazepines Scrn NEGATIVE (NEGATIVE) Urine Cocaine Screen NEGATIVE (NEGATIVE) U Marijuana (THC) Screen NEGATIVE (NEGATIVE) Monoscreen NEGATIVE (NEGATIVE) 02/10/17 02/10/17 02/10/17 18:58 18:58 18:58 WBC 6.51 10^3/uL 10^3/uL (3.80-9.50) RBC 4.06 10^6/uL L 10^6/uL (4.18-5.33) Hgb 12.0 g/dL L g/dL (12.6-16.3) Hct 34.0 % L % (38.0-47.0) MCV 83.7 fL fL (81.5-99.8) MCH 29.6 pg pg (27.9-34.1) MCHC 35.3 g/dL g/dL (32.4-36.7) RDW 13.0 % % (11.5-15.2) Plt Count 248 10^3/uL 10^3/uL (150-400) MPV 10.5 fL fL (8.7-11.7) Neut % (Auto) 57.5 % % (39.3-74.2) Lymph % (Auto) 34.7 % % (15.0-45.0) [place] % (Auto) 6.9 % % (4.5-13.0) Eos % (Auto) 0.3 % L % (0.6-7.6) Baso % (Auto) 0.3 % % (0.3-1.7) Nucleat RBC Rel Count 0.0 % % (0.0-0.2) Absolute Neuts (auto) 3.74 10^3/uL 10^3/uL (1.70-6.50) Absolute Lymphs (auto) 2.26 10^3/uL 10^3/uL (1.00-3.00) Absolute Monos (auto) 0.45 10^3/uL 10^3/uL (0.30-0.80) Absolute Eos (auto) 0.02 10^3/uL L 10^3/uL (0.03-0.40) Absolute Basos (auto) 0.02 10^3/uL 10^3/uL (0.02-0.10) Absolute Nucleated RBC 0.00 10^3/uL 10^3/uL (0-0.01) Immature Gran % 0.3 % % (0.0-1.1) Immature Gran # 0.02 10^3/uL 10^3/uL (0.00-0.10) Sodium 136 mEq/L mEq/L (134-144) Potassium 3.9 mEq/L mEq/L (3.5-5.2) Chloride 106 mEq/L mEq/L (97-110) Carbon Dioxide 20 mEq/l L mEq/l (22-31) Anion Gap 10 mEq/L mEq/L (8-16) BUN 9 mg/dL mg/dL (7-23) Creatinine 0.8 mg/dL mg/dL (0.6-1.0) Estimated GFR > 60 Glucose 80 mg/dL mg/dL (70-100) Calcium 9.4 mg/dL mg/dL (8.5-10.4) Total Bilirubin 0.7 mg/dL mg/dL (0.1-1.4) Conjugated Bilirubin 0.3 mg/dL mg/dL (0.0-0.5) Unconjugated Bilirubin 0.4 mg/dL mg/dL (0.0-1.1) AST 15 IU/L IU/L (14-46) ALT 28 IU/L IU/L (9-52) Alkaline Phosphatase 52 IU/L IU/L (38-126) Total Protein 6.9 g/dL g/dL (6.3-8.2) Albumin 4.2 g/dL g/dL (3.5-5.0) Lipase 110 IU/L IU/L (23-300) Beta HCG, Qual POSITIVE Beta HCG, Quant Urine Color Urine Appearance Urine pH Ur Specific [place] Urine Protein Urine Ketones Urine Blood Urine Nitrate Urine Bilirubin Urine Urobilinogen Ur Leukocyte Esterase Urine RBC Urine WBC Ur Epithelial Cells Urine Glucose Urine Opiates Screen Urine Barbiturates Ur Phencyclidine Scrn Ur Amphetamine Screen U Benzodiazepines Scrn Urine Cocaine Screen U Marijuana (THC) Screen Monoscreen Medications Given: Discontinued Medications Diazepam (Valium Injection) 2.5 mg IVP EDNOW ONE Stop: 02/10/17 23:51 Last Admin: 02/11/17 00:14 Dose: 2.5 mg Hydromorphone HCl (Dilaudid) 1 mg IVP EDNOW ONE Stop: 02/10/17 19:26 Last Admin: 02/10/17 19:37 Dose: 1 mg Hydromorphone HCl (Dilaudid) 1 mg IVP EDNOW ONE Stop: 02/10/17 20:28 Last Admin: 02/10/17 20:35 Dose: 1 mg Hydromorphone HCl (Dilaudid) 1 mg IVP EDNOW ONE Stop: 02/10/17 21:55 Last Admin: 02/10/17 21:56 Dose: 1 mg Hydromorphone HCl (Dilaudid) 0.5 mg IVP EDNOW ONE Stop: 02/11/17 00:44 Last Admin: 02/11/17 00:46 Dose: 0.5 mg Sodium Chloride (Ns) 1,000 mls @ 0 mls/hr IV EDNOW ONE; Wide Open PRN Reason: Protocol Stop: 02/10/17 19:26 Last Admin: 02/10/17 19:42 Dose: 1,000 mls Ketorolac Tromethamine (Toradol) 15 mg IVP EDNOW ONE Stop: 02/10/17 20:48 Last Admin: 02/10/17 21:17 Dose: 15 mg Ondansetron HCl (Zofran) 4 mg IVP EDNOW ONE Stop: 02/10/17 19:26 Last Admin: 02/10/17 19:37 Dose: 4 mg Promethazine HCl (Phenergan) 6.25 mg IVP ONCE ONE Stop: 02/10/17 20:41 Last Admin: 02/10/17 20:42 Dose: 6.25 mg Departure - Departure Disposition: [facility] Acute Clinical Impression: possible retained products Abdominal pain Qualifiers: Abdominal location: right lower quadrant Qualified Code(s): R10.31 - Right lower quadrant pain Condition: Fair
[2017-02-10] MEDS ORDERED: DIAZEPAM 10 MG/2 ML SYR IVP ONE (23:50)
[2017-02-10] MEDS ORDERED: ACETAMINOPHEN 325 MG TAB PO PRN (23:57)
[2017-02-10] MEDS ORDERED: ONDANSETRON DISINTEGRATING 4 MG TAB PO PRN (23:57)
[2017-02-10] MEDS ORDERED: oxyCODONE IR 5 MG TAB PO PRN (23:57)
--- NOTE | 2017-02-11 00:20 | PDGENHP ---
History and Physical - Chief Complaint Abdominal pain - History of Present Illness 37 yo F w/ hx of recent and miscarriage presents with persistent RLQ pain. Patient recently presented w/ RLQ pain. During that admission to OB service she was found to be . While inpatient, she experienced a miscarriage confirmed by imaging. Since, she has continued to have severe, crampy RLQ pain. She denies fevers, vomiting, diarrhea, and blood in stool. She also denies dysuria and frequency. In the ED B-Hcg was found to be downtrending and imaging showed no acute pathology. Patient was admitted for pain control. History Information - Allergies/Home Medication List Allergies/Adverse Reactions: gluten [Gluten] Allergy (Unknown, Verified 02/10/17 18:14) CELIAC, ABD CRAMPING ergotamine Allergy (Verified 02/10/17 18:14) haloperidol [From Haldol] Allergy (Verified 02/10/17 18:14) haloperidol lactate [From Haldol] Allergy (Verified 02/10/17 18:14) [id number] Antimigraine Agents Allergy (Verified 02/10/17 18:14) Home Medications: clonazePAM [klonoPIN (*)] 1.5 mg PO HS 11/15/16 [Last Taken 01/28/17] I have personally reviewed and updated: family history, medical history - Past Medical History migraines - Family History Additional family history: SLE. Breast cancer - Social History Smoking Status: Former smoker Review of Systems Review of Systems: ROS: 10pt was reviewed & negative except for what was stated in HPI & below Physical Exam Physical Exam: Temp Pulse Resp BP Pulse Ox 37.2 C 103 H 18 114/83 H 98 02/10/17 20:37 02/10/17 21:17 02/10/17 21:17 02/10/17 21:17 02/10/17 21:17 Constitutional: appears nourished, uncomfortable Eyes: PERRL, EOMI Ears, Nose, Mouth, Throat: moist mucous membranes, no oral mucosal ulcers Cardiovascular: regular rate and rhythym, no murmur, rub, or gallop Respiratory: no respiratory distress, no rales or rhonchi Gastrointestinal: normoactive bowel sounds, tenderness (RLQ), No guarding, No rebound, No distension Skin: warm, normal color Musculoskeletal: full muscle strength, no muscle tenderness Neurologic: AAOx3, CN II-XII Intact Psychiatric: interacting appropriately, not anxious Lab Data & Imaging Review 02/10/17 18:58 02/10/17 18:58 WBC 6.51 10^3/uL (3.80-9.50) 02/10/17 18:58 RBC 4.06 10^6/uL (4.18-5.33) L 02/10/17 18:58 Hgb 12.0 g/dL (12.6-16.3) L 02/10/17 18:58 Hct 34.0 % (38.0-47.0) L 02/10/17 18:58 MCV 83.7 fL (81.5-99.8) 02/10/17 18:58 MCH 29.6 pg (27.9-34.1) 02/10/17 18:58 MCHC 35.3 g/dL (32.4-36.7) 02/10/17 18:58 RDW 13.0 % (11.5-15.2) 02/10/17 18:58 Plt Count 248 10^3/uL (150-400) 02/10/17 18:58 MPV 10.5 fL (8.7-11.7) 02/10/17 18:58 Neut % (Auto) 57.5 % (39.3-74.2) 02/10/17 18:58 Lymph % (Auto) 34.7 % (15.0-45.0) 02/10/17 18:58 [place] % (Auto) 6.9 % (4.5-13.0) 02/10/17 18:58 Eos % (Auto) 0.3 % (0.6-7.6) L 02/10/17 18:58 Baso % (Auto) 0.3 % (0.3-1.7) 02/10/17 18:58 Nucleat RBC Rel Count 0.0 % (0.0-0.2) 02/10/17 18:58 Absolute Neuts (auto) 3.74 10^3/uL (1.70-6.50) 02/10/17 18:58 Absolute Lymphs (auto) 2.26 10^3/uL (1.00-3.00) 02/10/17 18:58 Absolute Monos (auto) 0.45 10^3/uL (0.30-0.80) 02/10/17 18:58 Absolute Eos (auto) 0.02 10^3/uL (0.03-0.40) L 02/10/17 18:58 Absolute Basos (auto) 0.02 10^3/uL (0.02-0.10) 02/10/17 18:58 Absolute Nucleated RBC 0.00 10^3/uL (0-0.01) 02/10/17 18:58 Immature Gran % 0.3 % (0.0-1.1) 02/10/17 18:58 Immature Gran # 0.02 10^3/uL (0.00-0.10) 02/10/17 18:58 Sodium 136 mEq/L (134-144) 02/10/17 18:58 Potassium 3.9 mEq/L (3.5-5.2) 02/10/17 18:58 Chloride 106 mEq/L (97-110) 02/10/17 18:58 Carbon Dioxide 20 mEq/l (22-31) L 02/10/17 18:58 Anion Gap 10 mEq/L (8-16) 02/10/17 18:58 BUN 9 mg/dL (7-23) 02/10/17 18:58 Creatinine 0.8 mg/dL (0.6-1.0) 02/10/17 18:58 Estimated GFR > 60 02/10/17 18:58 Glucose 80 mg/dL (70-100) 02/10/17 18:58 Calcium 9.4 mg/dL (8.5-10.4) 02/10/17 18:58 Total Bilirubin 0.7 mg/dL (0.1-1.4) 02/10/17 18:58 Conjugated Bilirubin 0.3 mg/dL (0.0-0.5) 02/10/17 18:58 Unconjugated Bilirubin 0.4 mg/dL (0.0-1.1) 02/10/17 18:58 AST 15 IU/L (14-46) 02/10/17 18:58 ALT 28 IU/L (9-52) 02/10/17 18:58 Alkaline Phosphatase 52 IU/L (38-126) 02/10/17 18:58 Total Protein 6.9 g/dL (6.3-8.2) 02/10/17 18:58 Albumin 4.2 g/dL (3.5-5.0) 02/10/17 18:58 Lipase 110 IU/L (23-300) 02/10/17 18:58 Beta HCG, Qual POSITIVE 02/10/17 18:58 Beta HCG, Quant 370.47 mIU/mL (0.00-4.83) H 02/10/17 18:58 Urine Color YELLOW 02/10/17 20:30 Urine Appearance HAZY 02/10/17 20:30 Urine pH 5.0 (5.0-7.5) 02/10/17 20:30 Ur Specific [place] 1.012 (1.002-1.030) 02/10/17 20:30 Urine Protein NEGATIVE (NEGATIVE) 02/10/17 20:30 Urine Ketones TRACE (NEGATIVE) H 02/10/17 20:30 Urine Blood 3+ (NEGATIVE) H 02/10/17 20:30 Urine Nitrate NEGATIVE (NEGATIVE) 02/10/17 20:30 Urine Bilirubin NEGATIVE (NEGATIVE) 02/10/17 20:30 Urine Urobilinogen NEGATIVE EU (0.2-1.0) 02/10/17 20:30 Ur Leukocyte Esterase TRACE (NEGATIVE) H 02/10/17 20:30 Urine RBC 1-3 /hpf (0-3) 02/10/17 20:30 Urine WBC 5-10 /hpf (0-3) H 02/10/17 20:30 Ur Epithelial Cells 1+ /lpf (NONE-1+) 02/10/17 20:30 Urine Glucose NEGATIVE (NEGATIVE) 02/10/17 20:30 Urine Opiates Screen NON-NEGATIVE (NEGATIVE) H 02/10/17 20:30 Urine Barbiturates NEGATIVE (NEGATIVE) 02/10/17 20:30 Ur Phencyclidine Scrn NEGATIVE (NEGATIVE) 02/10/17 20:30 Ur Amphetamine Screen NEGATIVE (NEGATIVE) 02/10/17 20:30 U Benzodiazepines Scrn NEGATIVE (NEGATIVE) 02/10/17 20:30 Urine Cocaine Screen NEGATIVE (NEGATIVE) 02/10/17 20:30 U Marijuana (THC) Screen NEGATIVE (NEGATIVE) 02/10/17 20:30 Monoscreen NEGATIVE (NEGATIVE) 02/10/17 18:58 Imaging Review: Per discussion with ED physician Dr. Royal, no acute findings on CT A/P. Pelvis U/S w/ findings possibly representing retained POC. Assessment & Plan Assessment: 37 yo F presenting w/ persistent RLQ pain after recent miscarriage. Plan: 1. RLQ pain - Unclear etiology, suspect likely related to recent and miscarriage noting temporal relation. Pelvic U/S does show possible retained POC. Location possibly c/w urolithiasis but this has not been seen on imaging during pain episodes, which makes this less likely. She denies infectious, GI, and urinary symptoms. - Await final CT A/P read, specific attention to lymphadenopathy noting R axillary lymph nodes - OB consulted in the ED, will see patient in the morning. - Oxycodone and morphine PRN for pain control 2. Lymphadenopathy - Palpable LND in R axilla. This has been present for a few weeks in the setting of above with unclear significance. Additionally, patient reports ~15 lb weight loss in the last 8 months. - Continue outpatient follow-up with Dr. Weston - Careful review of CT for lymphadenopathy, as above 3. Hx migraines - well controlled over last 8 months, per patient. Diet - Regular Code - Full Ppx - SCDs Dispo - Admit to observation status
[2017-02-11] MEDS ORDERED: HYDROmorphONE/DILAUDID 1 MG/ML INJ IVP ONE (00:43)
[2017-02-11] MEDS ORDERED: diphenhydrAMINE 25 MG CAP PO PRN (01:45)
[2017-02-11] MEDS: HYDROmorphONE/DILAUDID 1 MG/ML INJ IVP PRN ×6 (02:06→14:45)
[2017-02-11] MEDS: ONDANSETRON 4 MG/2 ML VIAL IVP PRN ×2 (04:58→10:14)
[2017-02-11 06:00] LABS: % IMMATURE GRANULYOCYTES 0.2 % (0.0-1.1); ABSOLUTE IMMATURE GRANULOCYTES 0.02 10^3/uL (0.00-0.10); ADD DIFF? NO; ADD MORPH? NO; ADD SCAN? NO; ATYPICAL LYMPHOCYTE FLAG 10 (0-99); FRAGMENT RBC FLAG 0 (0-99); HEMATOCRIT 32.6 % (38.0-47.0); HEMOGLOBIN 11.3 g/dL (12.6-16.3); LEFT SHIFT FLG 0 (0-99); LIPEMIA HEMOLYSIS FLAG 90 (0-99); MEAN CELL HEMOGLOBIN 29.3 pg (27.9-34.1); MEAN CELL HEMOGLOBIN CONCENTR. 34.7 g/dL (32.4-36.7); MEAN CELL VOLUME 84.5 fL (81.5-99.8); MEAN PLATELET VOLUME 10.2 fL (8.7-11.7); PLATELET CLUMPS FLAG 0 (0-99); PLATELET COUNT 223 10^3/uL (150-400); RED BLOOD CELL COUNT 3.86 10^6/uL (4.18-5.33)
[2017-02-11 06:16] LABS: ANION GAP 9 mEq/L (8-16); CALCIUM 8.7 mg/dL (8.5-10.4); CARBON DIOXIDE 19 mEq/l (22-31); CHLORIDE 110 mEq/L (97-110); CREATININE 0.8 mg/dL (0.6-1.0); GLOMERULAR FILTRATION RATE > 60; GLUCOSE 79 mg/dL (70-100); POTASSIUM 3.8 mEq/L (3.5-5.2); SODIUM 138 mEq/L (134-144)
[2017-02-11 07:26] VITALS: BP 112/75; PULSE 86; RESP 14; TEMP 97.9; O2SAT 99
[2017-02-11] MEDS ORDERED: HYDROmorphONE/DILAUDID 2 MG TAB PO PRN (08:49)
[2017-02-11] MEDS: KETOROLAC 30 MG/1 ML SDV IVP PRN ×2 (09:15→14:48)
--- NOTE | 2017-02-11 15:08 | GCON ---
[f rep st] CONSULTATION DATE OF CONSULTATION: 02/11/2017 REASON FOR CONSULTATION: Recent miscarriage with a 4-1/2-week history of right lower quadrant pain. Patient is a 37-year-old female who presented to the emergency room complaining of right lower quadr ant pain for the last 4-1/2 weeks. The patient was hospitalized a week and a half ago on January 02, and was found to be . She was measuring 6 weeks with positive heart tones. She w as discharged to home and returned on January 29, complaining of some spotting and worsening righ t lower quadrant pain and a syncopal episode. She was admitted to the hospital with a diagnosis of p ossible kidney stone, which could have been causing her abdominal pain. She had an 8-week with heart tones. The patient was admitted for pain management, and during that admission she had a spontaneous . Patient had a CT scan and was thought to have a possible kidney stone. She was discharged to home and instructed to follow up with her primary care doctor and us for sponta neous . She was evaluated at [facility] February 02 for abdominal pain and worsening sy mptoms. She presented again to the emergency room last night with persistent right lower quadrant pa in. An ultrasound was obtained which showed a uterus measuring 10.1 x 4.8 x 4.6 cm, which is mildly enlarged, and with a 1 cm fluid collection within the endometrium. Corpus luteum cyst was noted on t he left side and a hemorrhagic cyst was noted on the right side. Both were small. Patient was admit yuri for pain management and observation. I presented this afternoon and reviewed the images with the patient. She had been told by the emergency room doctor that she would likely need a D and C. We d iscussed that ultrasound findings were more consistent with a clot and not retained products of pham ption, and since the right lower quadrant pain has preceded the miscarriage and that it is unlikely t hat this is the actual cause, that fluid within the lining of the uterus is unlikely to be actually c ausing the pain. We had a long discussion about management options and the admitting hospitalist has discussed management options with the patient and patient will be discharged to home and instructed to follow up with us in the office. MEDICAL HISTORY: History of migraines with aura, which lasted for years. She had TIA events during these headaches. She has had 51 ER visits during the course of the last 4 years. The patient states that her headaches have finally improved over the last couple of months. She has a history signific ant for alcoholism and drug abuse. She has been sober from cocaine and marijuana for 14 years and so dipak from alcohol for 8 years. Endometriosis. MEDICATIONS: She started control pills. She is also currently taking Dilaudid, Zofran, Klonop in, vitamin D and calcium. SURGICAL HISTORY: Tonsillectomy, laparoscopy x2, appendectomy and repair of bowel injury. ALLERGIES: Allergic to Haldol, allergic to Triptans. She is currently weaning off Klonopin. SOCIAL HISTORY: Patient is single. She has been in a relationship for a few months. She is current ly unemployed and disabled secondary to her headaches. She denies tobacco, alcohol, or drug use. FAMILY MEDICAL HISTORY: A paternal grandfather who had heart disease, paternal aunt who had breast c ancer. OBSTETRICAL HISTORY: She is a 1, para 0-0-1-0. She had a spontaneous last month. GYNECOLOGICAL HISTORY: Significant for endometriosis. She has had 2 laparoscopies for endometriosis . She has had a ruptured ovarian cyst and bowel injury. She denies history of abnormal Pap smears. PHYSICAL EXAMINATION: VITAL SIGNS: Stable. She is afebrile. GENERAL APPEARANCE: Alert and orient ed x3. PSYCH: She has appropriate affect. HEART: Rate is regular, regular. LUNGS: Clear to ausc ultation bilaterally. ABDOMEN: Soft, nondistended, nontender. EXTREMITIES: Reveal no calf tendern ess or edema. PELVIC: Deferred. LABORATORY DATA: Her white count is 8.5, her hemoglobin is 11.3, her hematocrit is 32.6, her platele ts are 223. Her urine does have 3+ on blood. Urine culture is pending. ASSESSMENT AND PLAN: A 37-year-old 1, para 0-0-1-0, with recent miscarriage. There is a sma ll amount of fluid within the lining of the uterus. We do not think this is contributing to her righ t lower quadrant pain, which is her presenting complaint. The patient has persistent right lower eric drant pain. She has had negative imaging on this admission and multiple negative images in the most recent past. The patient will follow up with General Surgery, Dr. Weston, whom she has been seeing, and her primary care doctor. The patient has being discharged from the hospitalist service with a presc ription for Dilaudid, Zofran, and Phenergan. The patient was told to expect possibly having some ble eding in the next week or 2 due to there being a clot within the uterus. We reviewed bleeding precau tions and pain precautions. The patient will follow up as needed. /[id number]/MODL
--- NOTE | 2017-02-11 18:38 | PDDCSUM ---
Discharge Summary Discharge Summary: DISCHARGE SUMMARY FOLLOW-UP ITEMS: Work on outpatient, nonnarcotic management of chronic abdominal pain DATE OF ADMISSION: 02/10/2017 DATE OF DISCHARGE: 02/11/2017 DISCHARGE DIAGNOSES: 1. Acute on chronic abdominal pain 2. Recent miscarriage 3. 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 Chronic nephrolithiasis CONSULTATIONS: Obstetrics by Dr. Maribeth Littlejohn PROCEDURES / IMAGING: CT of the abdomen pelvis demonstrating a blood clot in the uterus, no bowel distention, no lymphadenopathy, small nonobstructing stones in bilateral kidneys CHIEF COMPLAINT: Acute on chronic abdominal pain SUBJECTIVE: Patient's abdominal pain is well managed at time of discharge, she is comfortable with the discharge plan PHYSICAL EXAM ON DISCHARGE: Systolic blood pressure 110, heart rate 80, afebrile overnight, satting well on room air, alert awake oriented x3, no apparent distress, patient currently appears to be not experiencing any pain as she is fairly talking, actively engaging, and participating well in our conversation without any mention of pain LABS ON DISCHARGE: Quantitative beta HCG 370, creatinine 0.8, tox screen positive for opiates on presentation, white blood cell count 8600, hemoglobin 11.3, potassium 3.8, urinalysis with microscopic hematuria and 5-10 white blood cells HOSPITAL COURSE BY PROBLEM: The patient presented with acute worsening of her chronic abdominal pain located in the right lower quadrant, most likely secondary to a functional pain syndrome. Abdominal CT imaging demonstrated no underlying structural etiology for her pain and her labs demonstrated no evidence of infection. The patient did recently have a miscarriage and there was some small blood clot product retained in the uterus. The patient was seen in consultation by Dr. Maribeth Littlejohn , and Dr. Littlejohn and I both agree that this small blood clot in the uterus is not the cause of the patient's pain which has been present prior to conceiving. I also do not believe that the patient's pain is secondary to the small kidney stones which are present on imaging but are not obstructing and other than causing microscopic hematuria are most likely not the cause of chronic abdominal pain symptoms. I also do not believe that the pain is 2/2 lymphadenopathy, as there is no lymphadenopathy on her present CT scan. Lymphadenopathy is most likely reactive in the setting of her recent miscarriage at this time does not appear to be clinically significant. The reason that I believe the patient has underlying functional pain syndrome is that she presents to us with a history of what she reports as a 4 half year migraine headache which was persistent and pervasive on a daily basis, requiring a combination of high-dose narcotics as well as alternative medicine coping mechanism in order to alleviate the pain. The patient was able to become headache free in June of 2016 and she has been doing well since. It is not uncommon for person experiencing functional pain syndromes to Re- manifest or pain in a different body system, sometimes secondary to acute exacerbating event or stressor, but other times occurring seemingly sporadically without identifiable precipitant. I suspect that is what has happened for this patient and any stress that she is encounter around her recent or miscarriage may have exacerbated the pain which she is experiencing. I discussed this with the patient and recommended that she continue to work with her primary care provider and re-employ her previous strategies for managing her headache pain as these seem to be successful coping mechanisms in the past. She may require pharmacologic bridging the patient has requested as-needed Dilaudid in the short term as well as antiemetics. I will provide this to the patient with the caveat being that she is high risk for opiate dependency if these become the principal method of managing her symptoms and will only prescribe her a very limited supply. I also recommended a stool softener while she is on opiates, to avoid exacerbating her situation with constipation. DISCHARGE MEDICATIONS: Please see official discharge medication reconciliation sheet in chart , Dilaudid 2 mg as needed, 20 tablets prescribed, Phenergan as needed, 40 tablets prescribed, Zofran as needed, 40 tablets prescribed, Senokot S twice daily while on opiates. DISCHARGE INSTRUCTIONS: Please follow up with primary care provider as soon as possible. TIME SPENT: Greater than 30 minutes were spent on direct patient care, as well as discharge planning and preparation.
== END 2017-02-11 15:10 | disposition home or self-care (01) ==
LOC: FOB 02-11 01:10
PROVIDERS: ADMIT Student in an Organized Health Care Education/Training Program; ATTEND Internal Medicine
PROC: 3E0337Z Introduction of Electrolytic and Water Balance Substance into Peripheral Vein, Percutaneous Approach (ICD-10-PCS; principal; 2017-02-10)
DX: R10.31 Right lower quadrant pain (principal); G89.29 Other chronic pain; N85.8 Other specified noninflammatory disorders of uterus; E86.9 Volume depletion, unspecified; N20.0 Calculus of kidney; R59.1 Generalized enlarged lymph nodes; G43.909 Migraine, unspecified, not intractable, without status migrainosus; F10.21 Alcohol dependence, in remission; Z79.891 Long term (current) use of opiate analgesic; Z87.891 Personal history of nicotine dependence
CPT/HCPCS: 74176; 76856; 93005; 96361; 96374; 96375; 96376; 99285; G0378; 80305; J1170; J1885; J2405; J2550

== ENCOUNTER 2017-05-26 15:14 | Emergency (ER) | payer MEDICAID, OTHER ==
--- NOTE | 2017-05-26 15:28 | EDPHY ---
H & P Stated Complaint: intractable migraine Time Seen by Provider: 05/26/17 15:27 HPI/ROS: CHIEF COMPLAINT: Migraine HISTORY OF PRESENT ILLNESS: The patient is a 37 y/o female complaining of a migraine headache with photophobia for the last few days. She has a long history of migraines and reports she has one every day of her life. She has had extensive work ups for her migraines with multiple specialists over the last 4 years and is here for symptomatic management only. She has been doing fairly well for the last 8 months until a few days ago when this migraine started. She has associated nausea with dry heaving and these symptoms feel exactly the same as prior migraines. She has a home abortive regimen of Phenergan/Zofran, Toradol, Benadryl, and Dilaudid to use as needed for severe migraines. She took Phenergan and Dilaudid last night without significant improvement. Ketamine worked during prior visit to the ED for this. No weakness, paresthesias, fever. REVIEW OF SYSTEMS: A ten point review of systems was performed and is negative with the exception of the items mentioned in the HPI. Past medical history: Chronic migraines Past surgical history: Appendectomy Family history: Noncontributory Social history: Former smoker and former alcohol abuse. PCP: Sergo Samaniego Reviewed prior medical records including ED visit 11/15/16 for migraine and admission 02/10/17 for abdominal pain. General Appearance: Alert. Vital signs reviewed. Darkened room, wearing sunglasses. Heart rate 118 at triage. Blood pressure 122/97. Eyes: Pupils equal and round, no conjunctival injection, no discharge. ENT, Mouth: Mucous membranes are slightly dry, no oropharyngeal erythema or edema. Neck: No meningeal signs.. Respiratory: Lungs are clear to auscultation; no wheezes, rales, or rhonchi. Cardiovascular: Regular rate and rhythm; no murmur, rub, or gallop. Gastrointestinal: Abdomen is soft and nontender, no masses or organomegaly, bowel sounds normal. Skin: Warm and dry, no rashes on exposed skin, normal color. Back: Nontender to palpation over the thoracolumbar spine. No CVAT. Extremities: No lower extremity edema, no calf tenderness or swelling. Neurological: Alert and oriented. Moving all four extremities easily and equally. SEB. EOMI. Facial expressions symmetric. Tongue midline. Wine Consultant strength 5/5 bilaterally. Sensation is intact to light touch over all 4 extremities. Deep tendon reflexes are 2+ in the biceps and knees bilaterally. Psychiatric: Normal affect. - Personal History LMP (Females 10-55): 8-14 Days Ago Current Tetanus/Diphtheria Vaccine: Yes Tetanus Vaccine Date: 2012 - Medical/Surgical History Hx Asthma: No Hx Chronic Respiratory Disease: No Hx Diabetes: No Hx Cardiac Disease: No Hx Renal Disease: No Hx Cirrhosis: No Hx Alcoholism: Yes Hx HIV/AIDS: No Hx Splenectomy or Spleen Trauma: No Other PMH: GI bleed Feb 2010, chronic migraines, chronic pain, Recoverying Alcoholic-sober, endometriosis, appendectomy, celiac disease - Social History Smoking Status: Former smoker Constitutional: Initial Vital Signs Temperature (C) 36.4 C 05/26/17 15:19 Heart Rate 118 H 05/26/17 15:19 Respiratory Rate 20 05/26/17 15:19 Blood Pressure 122/97 H 05/26/17 15:19 O2 Sat (%) 98 05/26/17 15:19 O2 Delivery Mode Room Air O2 (L/minute) 3 Allergies/Adverse Reactions: gluten [Gluten] Allergy (Unknown, Verified 05/26/17 15:18) CELIAC, ABD CRAMPING dihydroergotamine Allergy (Verified 05/26/17 15:18) ergotamine Allergy (Verified 05/26/17 15:18) haloperidol [From Haldol] Allergy (Verified 05/26/17 15:18) haloperidol lactate [From Haldol] Allergy (Verified 05/26/17 15:18) [id number] Antimigraine Agents Allergy (Verified 05/26/17 15:18) Home Medications: Medication Instructions Recorded clonazePAM [klonoPIN (*)] 1.5 mg PO HS 11/15/16 Acetaminophen [Tylenol 325mg (*)] 650 mg PO Q4HRS PRN tab 02/11/17 HYDROmorphone HCL [Dilaudid 2 mg 2 mg PO Q4HRS PRN #20 tab 02/11/17 (*)] Ondansetron Odt [Zofran Odt 4 mg 4 mg PO Q4HRS PRN #40 tab 02/11/17 (*)] Promethazine HCl [Phenergan 25mg 25 mg PO Q6 PRN #40 tab 02/11/17 (*)] Sennosides/Docusate Sodium 1 tab PO BID #60 tab 02/11/17 [Senokot-S] diphenhydrAMINE [Benadryl 25 MG 25 mg PO Q6HRS PRN cap 02/11/17 (*)] Medical Decision Making ED Course/Re-evaluation: This is a 37 y/o female with chronic migraines who presents with a few-day history of a migraine. Symptoms feel the same as prior migraines. Patient has photophobia, but otherwise normal neuro exam. Plan for 4mg IV Zofran and 15mg IV Ketamine as 3 doses of this worked well last time. 1631: Reevaluated patient. She tells me she doesn't feel right after the ketamine--dysphoric with an out of body sensation-- and continues to have a headache. I am attributing this to the ketamine. She does not appear to have akathisia. We discussed the use of opiates for migraine headaches and she understands the concern about rebound headaches. She also understands that we are trying to be an opiate free emergency department. However, she feels that the ketamine is not going to work for her and I tend to agree. She is not specifically asking for opiates but tells me that this is what has worked for her in the past and this is what her pain management doctor recommends. Plan for 25mg IV Benadryl, 15mg IV Toradol, 0.5mg IV Dilaudid. 1729: Reassessed patient. She is feeling somewhat improved, but still in pain and requesting Phenergan. 0.5mg IV Dilaudid and 12.5mg IV Phenergan ordered. 1914: Reevaluated patient. Her nausea has improved, but her headache persists. She says her pain management provider usually advises to "hit it hard". I've told her I cannot give more than 1.0mg IV Dilaudid, which she agrees to. Patient is feeling improved and ready for discharge home. 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 She has more home migraine medication available should she needed it. Return precautions discussed. She is comfortable with plan for discharge. I feel that this is a migraine headache and do not suspect anything more sinister such as subarachnoid hemorrhage or meningitis. Differential Diagnosis: Headache including but not limited to subarachnoid hemorrhage, migraine headache , tension headache and infectious causes such as meningitis, pharyngitis and sinusitis. - Data Points Medications Given: Discontinued Medications Diphenhydramine HCl (Benadryl Injection) 25 mg IVP EDNOW ONE Stop: 05/26/17 16:33 Last Admin: 05/26/17 16:38 Dose: 25 mg Hydromorphone HCl (Dilaudid) 0.5 mg IVP EDNOW ONE Stop: 05/26/17 16:34 Last Admin: 05/26/17 16:43 Dose: 0.5 mg Hydromorphone HCl (Dilaudid) 0.5 mg IVP EDNOW ONE Stop: 05/26/17 17:36 Last Admin: 05/26/17 18:37 Dose: 0.5 mg Hydromorphone HCl (Dilaudid) 1 mg IVP EDNOW ONE Stop: 05/26/17 19:18 Last Admin: 05/26/17 19:38 Dose: 1 mg Ketamine HCl (Ketamine) 15 mg IVP EDNOW ONE Stop: 05/26/17 15:41 Last Admin: 05/26/17 15:58 Dose: 15 mg Ketorolac Tromethamine (Toradol) 15 mg IVP EDNOW ONE Stop: 05/26/17 16:33 Last Admin: 05/26/17 16:39 Dose: 15 mg Ondansetron HCl (Zofran) 4 mg IVP EDNOW ONE Stop: 05/26/17 15:43 Last Admin: 05/26/17 15:58 Dose: 4 mg Promethazine HCl (Phenergan) 12.5 mg IVP ONCE ONE Stop: 05/26/17 17:36 Last Admin: 05/26/17 18:36 Dose: 12.5 mg Departure - Departure Disposition: Home, Routine, Self-Care Clinical Impression: Migraine Qualifiers: Migraine type: other Status migrainosus presence: without status migrainosus Intractability: not intractable Qualified Code(s): G43.809 - Other migraine, not intractable, without status migrainosus Instructions: Migraine Headache (ED) Additional Instructions: 1. Continue home migraine medications as prescribed by your neurologist. 2. Follow up with your neurologist in the next week. 3. Return to the ED for worsening of condition. Referrals: Poncho Quezada MD [Medical Doctor] - As per Instructions Report Scribed for: Anna Silver Report Scribed by: Terri Rivas Date of Report: 05/26/17 Time of Report: 16:34 Physician Review and Approval Statement: 05/26/17 15:28 Portions of this note were transcribed by the medical coding manager. I, Dr. Anna Silver, personally performed the history, physical exam, and medical decision- making; and confirmed the accuracy of the information in the transcribed note.
[2017-05-26] MEDS ORDERED: KETAMINE 200 MG/20 ML VIAL IVP ONE (15:40)
[2017-05-26] MEDS ORDERED: ONDANSETRON 4 MG/2 ML VIAL IVP ONE (15:42)
[2017-05-26 16:14] VITALS: TEMP 97.9
[2017-05-26] MEDS ORDERED: KETOROLAC 30 MG/1 ML SDV IVP ONE (16:32)
[2017-05-26] MEDS ORDERED: HYDROmorphONE/DILAUDID 1 MG/ML INJ IVP ONE ×3 (16:33→19:17)
[2017-05-26] MEDS ORDERED: PROMETHAZINE HCL 25 MG/ML INJ IVP ONE (17:35)
[2017-05-26 19:48] VITALS: RESP 18
[2017-05-26 20:03] VITALS: BP 117/85; PULSE 102; O2SAT 99
== END 2017-05-26 20:02 | disposition home or self-care (01) ==
DX: G43.809 Other migraine, not intractable, without status migrainosus (principal); Z87.891 Personal history of nicotine dependence
CPT/HCPCS: 96374; J1170; J1200; J1885; J2405; J2550

== ENCOUNTER 2017-06-10 02:31 | Emergency (ER) | payer MEDICAID, OTHER ==
[2017-06-10] MEDS ORDERED: PROMETHAZINE HCL 25 MG/ML INJ IVP ONE (03:53)
[2017-06-10] MEDS ORDERED: KETOROLAC 15 MG/1 ML SDV IVP ONE (03:53)
[2017-06-10] MEDS ORDERED: ONDANSETRON 4 MG/2 ML VIAL IVP ONE ×2 (03:54→05:14)
[2017-06-10] MEDS ORDERED: NS 1,000 ML IV ONE (03:54)
[2017-06-10] MEDS ORDERED: HYDROmorphONE/DILAUDID 1 MG/ML INJ IVP ONE ×2 (04:18→05:14)
[2017-06-10] MEDS ORDERED: MAGNESIUM SULF 1 GM/DEXTROSE 100 ML IV ONE (04:18)
[2017-06-10] MEDS ORDERED: DEXAMETHASONE 10 MG/ML VIAL IVP ONE (04:24)
--- NOTE | 2017-06-10 04:24 | EDPHY ---
H & P Stated Complaint: c/o migraine/nausea x 7 days HPI/ROS: HPI The patient presents with headache over the last 1 week, getting progressively worse, feels as if it is her migraine. The patient has a longstanding history of migraine headaches and is currently followed by her primary care doctor and pain management for this. She has tried a multitude to treatments including Botox, home oxygen, and multiple medications. She has taken her usual medications at home, however her headache has persisted for the last 1 week. She believes it was triggered when she had some dental work performed and also came down with the flu. Her headache is retro-orbital in the right side of her face, it is throbbing in nature and associated with nausea and vomiting. She does not have any changes in her vision. She has been using her oxygen at home. REVIEW OF SYSTEMS Constitutional: No fever, no chills. Eyes: No discharge. ENT: No sore throat. Cardiovascular: No chest pain, no palpitations. Respiratory: No cough, no shortness of breath. Gastrointestinal: No abdominal pain, no vomiting. Genitourinary: No hematuria. Musculoskeletal: No back pain. Skin: No rashes. Neurological: Positive for headache. PMHx: Migraine headache, frequent ER visits Soc Hx: Housed PHYSICAL General Appearance: Alert, no distress, wearing sunglasses, sitting in a dark room Eyes: Pupils equal and round no pallor or injection ENT, Mouth: Mucous membranes moist Respiratory: There are no retractions, lungs are clear to auscultation Cardiovascular: Regular rate and rhythm Gastrointestinal: Abdomen is soft and non-tender, no masses, bowel sounds normal Neurological: A&O, moves all extremities Skin: Warm and dry, no rashes Musculoskeletal: Neck is supple non tender Extremities: symmetrical, full range of motion Psychiatric: Patient is oriented X 3, there is no agitation Source: Patient Exam Limitations: No limitations - Personal History Tetanus Vaccine Date: 2012 - Medical/Surgical History Hx Asthma: No Hx Chronic Respiratory Disease: No Hx Diabetes: No Hx Cardiac Disease: No Hx Renal Disease: No Hx Cirrhosis: No Hx Alcoholism: Yes Hx HIV/AIDS: No Hx Splenectomy or Spleen Trauma: No Other PMH: GI bleed Feb 2010, chronic migraines, chronic pain, Recoverying Alcoholic-sober, endometriosis, appendectomy, celiac disease, tia x 2 - Social History Smoking Status: Former smoker Constitutional: Initial Vital Signs Temperature (C) 36.5 C 06/10/17 02:35 Heart Rate 103 H 06/10/17 02:35 Respiratory Rate 16 06/10/17 02:35 Blood Pressure 142/109 H 06/10/17 02:35 O2 Sat (%) 98 06/10/17 02:35 O2 Delivery Mode Room Air O2 (L/minute) 2 Allergies/Adverse Reactions: gluten [Gluten] Allergy (Unknown, Verified 06/10/17 02:38) CELIAC, ABD CRAMPING dihydroergotamine Allergy (Verified 06/10/17 02:38) ergotamine Allergy (Verified 06/10/17 02:38) haloperidol [From Haldol] Allergy (Verified 06/10/17 02:38) haloperidol lactate [From Haldol] Allergy (Verified 06/10/17 02:38) [id number] Antimigraine Agents Allergy (Verified 06/10/17 02:38) Home Medications: Medication Instructions Recorded clonazePAM [klonoPIN (*)] 1.5 mg PO HS 11/15/16 Acetaminophen [Tylenol 325mg (*)] 650 mg PO Q4HRS PRN tab 02/11/17 HYDROmorphone HCL [Dilaudid 2 mg 2 mg PO Q4HRS PRN #20 tab 02/11/17 (*)] Ondansetron Odt [Zofran Odt 4 mg 4 mg PO Q4HRS PRN #40 tab 02/11/17 (*)] Promethazine HCl [Phenergan 25mg 25 mg PO Q6 PRN #40 tab 02/11/17 (*)] Sennosides/Docusate Sodium 1 tab PO BID #60 tab 02/11/17 [Senokot-S] Toradol 06/10/17 Medical Decision Making Differential Diagnosis: This is a 37-year-old female with longstanding history of migraine headaches, on multiple medications, frequent ER visits, who presents with 1 week of progressive right-sided retro-orbital headache associated with nausea and vomiting, she believes triggered by dental work and flu like illness. On exam, she is photophobic, otherwise her exam is normal. I have reviewed her chart and it seems she usually gets several rounds of medications before she is feeling better. She has had ketamine before which worked on 1 occasion, however causes adverse effects on another so she does not want to use this. She says she had a lidocaine drip before but this cause some sort of coronary vaso spasm. She has many medication allergies. I initially treated her with Toradol, Phenergan, Zofran. She continued to complain of pain, thus I have given her a dose of Dilaudid per her request. She says this medication really works for her headache. She required a 2nd dose of Dilaudid. She then said that her pain was 7/10 she is comfortable going home and resting. I have advised for her to follow up with her primary care doctor or pain specialist. - Data Points Medications Given: Discontinued Medications Dexamethasone (Decadron Injection) 10 mg IVP EDNOW ONE Stop: 06/10/17 04:25 Last Admin: 06/10/17 04:44 Dose: 10 mg Hydromorphone HCl (Dilaudid) 1 mg IVP EDNOW ONE Stop: 06/10/17 04:19 Last Admin: 06/10/17 04:44 Dose: 1 mg Hydromorphone HCl (Dilaudid) 1 mg IVP EDNOW ONE Stop: 06/10/17 05:15 Last Admin: 06/10/17 05:27 Dose: 1 mg Sodium Chloride (Ns) 1,000 mls @ 0 mls/hr IV EDNOW ONE; Wide Open PRN Reason: Protocol Stop: 06/10/17 03:55 Last Admin: 06/10/17 04:01 Dose: 1,000 mls Magnesium Sulfate/Dextrose (Magnesium Sulf 1 Gm (Premix)) 100 mls @ 100 mls/hr IV EDNOW ONE Stop: 06/10/17 05:17 Last Admin: 06/10/17 04:44 Dose: 100 mls Ketorolac Tromethamine (Toradol) 15 mg IVP EDNOW ONE Stop: 06/10/17 03:54 Last Admin: 06/10/17 04:02 Dose: 15 mg Ondansetron HCl (Zofran) 4 mg IVP EDNOW ONE Stop: 06/10/17 03:55 Last Admin: 06/10/17 04:02 Dose: 4 mg Ondansetron HCl (Zofran) 4 mg IVP EDNOW ONE Stop: 06/10/17 05:15 Last Admin: 06/10/17 05:27 Dose: 4 mg Promethazine HCl (Phenergan) 12.5 mg IVP ONCE ONE Stop: 06/10/17 03:54 Last Admin: 06/10/17 04:02 Dose: 12.5 mg Departure - Departure Disposition: Home, Routine, Self-Care Clinical Impression: Migraine Condition: Good Instructions: Acute Headache (ED) Referrals: Marisa Jansen PA [Primary Care Provider] - As per Instructions
[2017-06-10 05:23] VITALS: RESP 18
[2017-06-10 06:25] VITALS: BP 108/85; PULSE 94; TEMP 98.2; O2SAT 100
== END 2017-06-10 06:20 | disposition home or self-care (01) ==
DX: G43.909 Migraine, unspecified, not intractable, without status migrainosus (principal); E86.9 Volume depletion, unspecified; Z87.891 Personal history of nicotine dependence
CPT/HCPCS: 96365; J1100; J1170; J1885; J2405; J2550; J3475

== ENCOUNTER 2017-06-18 21:43 | Emergency (ER) | payer MEDICAID, OTHER ==
[2017-06-18] MEDS ORDERED: DEXAMETHASONE 10 MG/ML VIAL IVP ONE (22:07)
[2017-06-18] MEDS ORDERED: METOCLOPRAMIDE 10 MG/2 ML VIAL IVP ONE (22:07)
[2017-06-18] MEDS ORDERED: KETOROLAC 30 MG/1 ML SDV IVP ONE (22:07)
--- NOTE | 2017-06-18 22:07 | EDPHY ---
H & P Stated Complaint: MIGRAINE X 2 WEEKS HPI/ROS: HPI CHIEF COMPLAINT: "migraine Headache" HISTORY OF PRESENT ILLNESS: Patient is a 37-year-old female, longstanding history of migraine headaches. She also has chronic pain syndrome and endometriosis she presents emergency room with a headache, she states behind her right eye this is typical for her. She states this is where she normally gets her headaches. It has been present for 3 weeks. She states it comes and goes. She denies any neck pain or fever. Denies stiff neck. She states that she suffers from migraine headaches for years and always gets a headache behind her right eye. She has had photophobia and phonophobia. No vomiting but has nausea. Denies recent illness. Denies chest pain or shortness of breath. Denies stiff neck. Denies fever. She reports to me she has not take any pain medicine for 2 days. She states she used to see a neurologist but does not any longer. Past Medical History: Migraine headaches, chronic pain syndrome, endometriosis , GI bleed, alcoholism Past Surgical History: Endometriosis surgery, appendectomy Social History: Denies drugs alcohol tobacco. Family History: Noncontributory ROS REVIEW OF SYSTEMS: A comprehensive 10 point review of systems is otherwise negative aside from elements mentioned in the history of present illness. Exam Constitutional appears nontoxic, triage nursing summary reviewed, vital signs reviewed, awake/alert. Eyes normal conjunctivae and sclera, EOMI, PERRLA. HENT normal inspection, atraumatic, moist mucus membranes, no epistaxis, neck supple/ no meningismus, no raccoon eyes. Respiratory clear to auscultation bilaterally, normal breath sounds, no respiratory distress, no wheezing. Cardiovascular rate normal, regular rhythm, no murmur, no edema, distal pulses normal. Gastrointestinal soft, non-tender, no rebound, no guarding, normal bowel sounds, no distension, no pulsatile mass. Genitourinary no CVA tenderness. Musculoskeletal no midline vertebral tenderness, full range of motion, no calf swelling, no tenderness of extremities, no meningismus, good pulses, neurovascularly intact. Skin pink, warm, & dry, no rash, skin atraumatic. Neurologic unremarkable neurological exam, awake, alert and oriented x 3, AAOx3 , moves all 4 extremities equally, motor intact, sensory intact, CN II-XII intact, normal cerebellar, normal vision, normal speech. Psychiatric normal mood/affect. Heme/Lymph/Immune no lymphadenopathy. Differential Diagnosis: Includes but is not limited to in a particular order migraine headache, tension headache, cluster headache, intracranial bleed, meningitis Medical Decision Making: Patient clinically here in the emergency room states that she has headache that since her previous migraine headaches. She is requesting a migraine cocktail. Patient had an IV established obtain blood work , IV fluid bolus and migraine cocktail. Re-evaluate. Re-evaluation: 1248AM: I did re-evaluate the patient is feeling much better. Her headache is now 2/10 and tolerable she would like to go home. A private her Fioricet however she understands she should follow up with her primary care doctor or neurologist about her headaches. Additionally she should return emergency room she develops worsening headache fever vomiting. She understands. She is comfortable this plan. Source: Patient - Personal History LMP (Females 10-55): 8-14 Days Ago Current Tetanus Diphtheria and Acellular Pertussis (TDAP): No Tetanus Vaccine Date: 2012 - Medical/Surgical History Hx Asthma: No Hx Chronic Respiratory Disease: No Hx Diabetes: No Hx Cardiac Disease: No Hx Renal Disease: No Hx Cirrhosis: No Hx Alcoholism: Yes Hx HIV/AIDS: No Hx Splenectomy or Spleen Trauma: No Other PMH: GI bleed Feb 2010, chronic migraines, chronic pain, Recoverying Alcoholic-sober, endometriosis, appendectomy, celiac disease, tia x 2 , CAD - Social History Smoking Status: Former smoker Constitutional: Initial Vital Signs Temperature (C) 36.5 C 06/18/17 21:49 Heart Rate 106 H 06/18/17 21:49 Respiratory Rate 20 06/18/17 21:49 Blood Pressure 136/94 H 06/18/17 21:49 O2 Sat (%) 100 06/18/17 21:49 O2 Delivery Mode Nasal Cannula O2 (L/minute) 2 Allergies/Adverse Reactions: gluten [Gluten] Allergy (Unknown, Verified 06/10/17 02:38) CELIAC, ABD CRAMPING dihydroergotamine Allergy (Verified 06/10/17 02:38) ergotamine Allergy (Verified 06/10/17 02:38) haloperidol [From Haldol] Allergy (Verified 06/10/17 02:38) haloperidol lactate [From Haldol] Allergy (Verified 06/10/17 02:38) [id number] Antimigraine Agents Allergy (Verified 06/10/17 02:38) Home Medications: Medication Instructions Recorded clonazePAM [klonoPIN (*)] 1.5 mg PO HS 11/15/16 Acetaminophen [Tylenol 325mg (*)] 650 mg PO Q4HRS PRN tab 02/11/17 HYDROmorphone HCL [Dilaudid 2 mg 2 mg PO Q4HRS PRN #20 tab 02/11/17 (*)] Ondansetron Odt [Zofran Odt 4 mg 4 mg PO Q4HRS PRN #40 tab 02/11/17 (*)] Promethazine HCl [Phenergan 25mg 25 mg PO Q6 PRN #40 tab 02/11/17 (*)] Sennosides/Docusate Sodium 1 tab PO BID #60 tab 02/11/17 [Senokot-S] Toradol 06/10/17 Acet/Caffeine/Buta Fioricet 1 each PO Q6 #10 tab 06/18/17 [Fioricet (*)] Medical Decision Making - Data Points Laboratory Results: Laboratory Results 06/18/17 22:20 06/18/17 22:20 06/18/17 06/18/17 22:20 22:20 WBC 7.15 10^3/uL 10^3/uL (3.80-9.50) RBC 4.60 10^6/uL 10^6/uL (4.18-5.33) Hgb 12.0 g/dL L g/dL (12.6-16.3) Hct 37.2 % L % (38.0-47.0) MCV 80.9 fL L fL (81.5-99.8) MCH 26.1 pg L pg (27.9-34.1) MCHC 32.3 g/dL L g/dL (32.4-36.7) RDW 14.2 % % (11.5-15.2) Plt Count 288 10^3/uL 10^3/uL (150-400) MPV 10.4 fL fL (8.7-11.7) Neut % (Auto) 52.8 % % (39.3-74.2) Lymph % (Auto) 37.3 % % (15.0-45.0) Porter % (Auto) 8.1 % % (4.5-13.0) Eos % (Auto) 1.0 % % (0.6-7.6) Baso % (Auto) 0.4 % % (0.3-1.7) Nucleat RBC Rel Count 0.0 % % (0.0-0.2) Absolute Neuts (auto) 3.77 10^3/uL 10^3/uL (1.70-6.50) Absolute Lymphs (auto) 2.67 10^3/uL 10^3/uL (1.00-3.00) Absolute Monos (auto) 0.58 10^3/uL 10^3/uL (0.30-0.80) Absolute Eos (auto) 0.07 10^3/uL 10^3/uL (0.03-0.40) Absolute Basos (auto) 0.03 10^3/uL 10^3/uL (0.02-0.10) Absolute Nucleated RBC 0.00 10^3/uL 10^3/uL (0-0.01) Immature Gran % 0.4 % % (0.0-1.1) Immature Gran # 0.03 10^3/uL 10^3/uL (0.00-0.10) Sodium 139 mEq/L mEq/L (135-145) Potassium 3.2 mEq/L L mEq/L (3.5-5.2) Chloride 105 mEq/L mEq/L (97-110) Carbon Dioxide 19 mEq/l L mEq/l (22-31) Anion Gap 15 mEq/L mEq/L (8-16) BUN 11 mg/dL mg/dL (7-23) Creatinine 0.8 mg/dL mg/dL (0.6-1.0) Estimated GFR > 60 Glucose 82 mg/dL mg/dL (70-100) Calcium 9.6 mg/dL mg/dL (8.5-10.4) Medications Given: Discontinued Medications Dexamethasone (Decadron Injection) 10 mg IVP EDNOW ONE Stop: 06/18/17 22:08 Last Admin: 06/18/17 22:23 Dose: 10 mg Diphenhydramine HCl (Benadryl Injection) 50 mg IVP EDNOW ONE Stop: 06/18/17 22:08 Last Admin: 06/18/17 22:23 Dose: 50 mg Hydromorphone HCl (Dilaudid) 1 mg IVP EDNOW ONE Stop: 06/18/17 22:30 Last Admin: 06/18/17 22:33 Dose: 1 mg Hydromorphone HCl (Dilaudid) 1 mg IVP EDNOW ONE Stop: 06/18/17 23:42 Last Admin: 06/18/17 23:48 Dose: 1 mg Sodium Chloride (Ns) 1,000 mls @ 0 mls/hr IV ONCE ONE PRN Reason: Wide Open Stop: 06/18/17 22:09 Last Admin: 06/18/17 22:19 Dose: 1,000 mls Sodium Chloride (Ns) 1,000 mls @ 0 mls/hr IV ONCE ONE PRN Reason: Wide Open Stop: 06/18/17 23:45 Last Admin: 06/18/17 23:47 Dose: 1,000 mls Ketorolac Tromethamine (Toradol) 30 mg IVP EDNOW ONE Stop: 06/18/17 22:08 Last Admin: 06/18/17 22:22 Dose: 30 mg Metoclopramide HCl (Reglan Injection) 10 mg IVP EDNOW ONE Stop: 06/18/17 22:08 Last Admin: 06/18/17 22:24 Dose: Not Given Ondansetron HCl (Zofran) 4 mg IVP EDNOW ONE Stop: 06/18/17 22:31 Last Admin: 06/18/17 22:32 Dose: 4 mg Promethazine HCl (Phenergan) 6.25 mg IVP ONCE ONE Stop: 06/18/17 23:42 Last Admin: 06/18/17 23:48 Dose: 6.25 mg Departure - Departure Disposition: Home, Routine, Self-Care Clinical Impression: Migraine Qualifiers: Migraine type: other Status migrainosus presence: with status migrainosus Intractability: intractable Qualified Code(s): G43.811 - Other migraine, intractable, with status migrainosus Condition: Good Instructions: Migraine Headache (ED), Acute Headache (ED) Additional Instructions: 1. Stay well-hydrated drink lots of fluids. 2. Low stimulus environment over the next 24-48 hours. 3. Follow up with her primary care doctor. Referrals: Marisa Jansen PA [Primary Care Provider] - As per Instructions Prescriptions: Acet/Caffeine/Buta Fioricet [Fioricet (*)] 1 each PO Q6 #10 tab
[2017-06-18] MEDS ORDERED: NS 1,000 ML IV ONE ×2 (22:08→23:44)
[2017-06-18] MEDS ORDERED: HYDROmorphONE/DILAUDID 1 MG/ML INJ IVP ONE ×2 (22:29→23:41)
[2017-06-18] MEDS ORDERED: ONDANSETRON 4 MG/2 ML VIAL IVP ONE (22:30)
[2017-06-18 22:37] LABS: PLATELET COUNT 288 10^3/uL (150-400)
[2017-06-18] MEDS ORDERED: PROMETHAZINE HCL 25 MG/ML INJ IVP ONE (23:41)
[2017-06-19] MEDS ORDERED: OXYCODONE/APAP 5/325 TAB PO ONE (00:48)
[2017-06-19 01:10] VITALS: BP 112/67; PULSE 77; RESP 106; TEMP 98.2; O2SAT 92
== END 2017-06-19 01:10 | disposition home or self-care (01) ==
DX: G43.811 Other migraine, intractable, with status migrainosus (principal); Z87.891 Personal history of nicotine dependence
CPT/HCPCS: 96374; J1100; J1170; J1200; J1885; J2405; J2550; J2765

== ENCOUNTER 2017-06-19 11:52 | Emergency (ER) | payer MEDICAID, OTHER ==
--- NOTE | 2017-06-19 12:52 | EDPHY ---
H & P Stated Complaint: seen freq recently/migraine x 3 weeks/is out of meds since thursday Source: Patient, Old records Exam Limitations: No limitations - Personal History LMP (Females 10-55): 1-7 Days Ago Current Tetanus/Diphtheria Vaccine: Yes Tetanus Vaccine Date: 2012 - Medical/Surgical History Hx Asthma: No Hx Chronic Respiratory Disease: No Hx Diabetes: No Hx Cardiac Disease: No Hx Renal Disease: No Hx Cirrhosis: No Hx Alcoholism: Yes Hx HIV/AIDS: No Hx Splenectomy or Spleen Trauma: No Other PMH: GI bleed Feb 2010, chronic migraines, chronic pain, Recoverying Alcoholic-sober, endometriosis, appendectomy, celiac disease, tia x 2 , CAD - Social History Smoking Status: Former smoker Time Seen by Provider: 06/19/17 12:52 HPI/ROS: HPI: This is a 37-year-old female who presents with Chief Complaint: seen freq recently/migraine x 3 weeks/is out of medications since Thursday Location: Right eye Quality: Sharp pain Duration: 3 weeks Signs and Symptoms: no fever, + nausea, no vomiting, + photophobia, + noise sensitivity, no neck stiffness, no ear pain, no tinnitus, no nasal congestion, no sinus pressure, no weakness, no radiation Timing: Waxes and wane Severity: 10/10 Context: Patient has a history of migraine headaches, chronic pain disorder, endometriosis, multiple drug allergies Re presents the emergency room in 24 hr with continued complaints of a headache, she states behind her right eye this is typical for her. She reports that all of her headaches usually the curb behind her right eye. Yesterday in the emergency room after the migraine cocktail her headache was 7/10 upon discharge. She said it reappeared up to a 10/10 several hours after returning home. She did not follow up with her primary care provider or Neurology. She reports in the past she has had Botox injections, been on multiple medication and therapy with transient relief. She reports that she has not taking any pain medication for 3 days. Denies stiff neck/fever/vomiting/abdominal pain/upper respiratory in symptoms/chest pain/ shortness of breath. + positive photophobia noise sensitivity She states she used to see a neurologist but does not any longer. Modifying Factors: Did not fill Fioricet prescription Comment: ROS: see HPI Constitutional: No fever, no chills, no weight loss Eyes: No blurred vision Respiratory: No shortness of breath, no cough Cardiovascular: No chest pain, no palpitations Gastrointestinal: No nausea, no vomiting, no diarrhea, no hematemesis, no blood in stool Genitourinary: No dysuria, no blood in urine Extremities: No myalgias, no edema Neurologic: No weakness, no numbness Skin: No rashes, no petechiae Hematologic: No bruising, no bleeding MEDICAL/SURGICAL/SOCIAL HISTORY: Medical/surgical history: GI bleed Feb 2010, chronic migraines, chronic pain, Recovering Alcoholic-sober, endometriosis, appendectomy, celiac disease, tia x 2 , CAD, chronic pain disorder Social history: Unemployed. CONSTITUTIONAL: Thin adult white female wearing sunglasses and soft neck collar curled up in a position rocking back and forth on the emergency room stretcher, awake and alert, moderate distress HEENT: Atraumatic and normocephalic, PERRL, EOMI. Tympanic membranes clear. Oropharynx clear, no exudate and moist pink mucosa. Airway patent. No lymphadenopathy. No meningismus. Cardiovascular: Normal S1/S2, tachycardia, regular rhythm, without murmur rub or gallop. PULMONARY/CHEST: Symmetrical and nontender. Clear to auscultation bilaterally. Good air movement. No accessory muscle usage. ABDOMEN: Soft, nondistended, nontender, no rebound, no guarding, no peritoneal signs, no masses or organomegaly. No CVAT. EXTREMITIES: 2/2 pulses, strength 5/5, no deformities, no clubbing, no cyanosis or edema. NEUROLOGICAL: no focal neuro deficits. GCS 15. Cranial nerves 2-12 grossly intact. SKIN: Warm and dry, no erythema. no rash. Good capillary refill. ([place]) Constitutional: Initial Vital Signs Temperature (C) 36.3 C 06/19/17 11:56 Heart Rate 112 H 06/19/17 11:56 Respiratory Rate 16 06/19/17 11:56 Blood Pressure 120/91 H 06/19/17 11:56 O2 Sat (%) 97 06/19/17 11:56 O2 Delivery Mode Room Air Allergies/Adverse Reactions: gluten [Gluten] Allergy (Unknown, Verified 06/19/17 11:54) CELIAC, ABD CRAMPING dihydroergotamine Allergy (Verified 06/19/17 11:54) ergotamine Allergy (Verified 06/19/17 11:54) haloperidol [From Haldol] Allergy (Verified 06/19/17 11:54) haloperidol lactate [From Haldol] Allergy (Verified 06/19/17 11:54) [id number] Antimigraine Agents Allergy (Verified 06/19/17 11:54) Home Medications: Medication Instructions Recorded clonazePAM [klonoPIN (*)] 1.5 mg PO HS 11/15/16 Acetaminophen [Tylenol 325mg (*)] 650 mg PO Q4HRS PRN tab 02/11/17 HYDROmorphone HCL [Dilaudid 2 mg 2 mg PO Q4HRS PRN #20 tab 02/11/17 (*)] Ondansetron Odt [Zofran Odt 4 mg 4 mg PO Q4HRS PRN #40 tab 02/11/17 (*)] Promethazine HCl [Phenergan 25mg 25 mg PO Q6 PRN #40 tab 02/11/17 (*)] Sennosides/Docusate Sodium 1 tab PO BID #60 tab 02/11/17 [Senokot-S] Toradol 06/10/17 Acet/Caffeine/Buta Fioricet 1 each PO Q6 #10 tab 06/18/17 [Fioricet (*)] Medical Decision Making ED Course/Re-evaluation: 1 L normal saline, IV Decadron, IV Haldol, 2 L nasal cannula oxygen therapy ordered No neurological deficits noted. 1350: Reassessed patient who reports that pain is mildly improved. IV Dilaudid , IV Toradol, IV Benadryl given per patient request. When questioned about receiving narcotics while on pain management. Patient reports that the pain management clinic sent her to the ER to receive migraine medication treatment. 1508: Reassessed patient who reports that pain now to down to 7/10. Requesting 1 more round of Dilaudid Toradol and Benadryl. Parents are at her bedside. Will drive her home. Patient given Fioricet prescription last night did not fill. Will not given another prescription. This patient was seen under the supervision of my secondary supervising physician. I evaluated care for this patient independently. (Michaela Rose) The patient was evaluated and managed by the physician sales assistant displays. I have reviewed this chart and I agree with the findings and plan of care as documented , as indicated by my signature. I am the secondary supervising physician. ( Anna Silver) Differential Diagnosis: Headache including but not limited to subarachnoid hemorrhage, migraine headache , tension headache and infectious causes such as meningitis, pharyngitis and sinusitis. (Michaela Rose) - Data Points Medications Given: Discontinued Medications Dexamethasone (Decadron Injection) 10 mg IVP EDNOW ONE Stop: 06/19/17 12:56 Last Admin: 06/19/17 13:12 Dose: 10 mg Diphenhydramine HCl (Benadryl Injection) 50 mg IVP EDNOW ONE Stop: 06/19/17 13:51 Last Admin: 06/19/17 13:55 Dose: 50 mg Diphenhydramine HCl (Benadryl Injection) 50 mg IVP EDNOW ONE Stop: 06/19/17 15:08 Last Admin: 06/19/17 15:26 Dose: 50 mg Haloperidol Lactate (Haldol Injection) 2.5 mg IVP EDNOW ONE Stop: 06/19/17 12:56 Last Admin: 06/19/17 13:11 Dose: 2.5 mg Hydromorphone HCl (Dilaudid) 1 mg IVP EDNOW ONE Stop: 06/19/17 13:51 Last Admin: 06/19/17 13:56 Dose: 1 mg Hydromorphone HCl (Dilaudid) 1 mg IVP EDNOW ONE Stop: 06/19/17 15:08 Last Admin: 06/19/17 15:26 Dose: 1 mg Sodium Chloride (Ns) 1,000 mls @ 0 mls/hr IV ONCE ONE; Wide Open PRN Reason: Protocol Stop: 06/19/17 12:56 Last Admin: 06/19/17 13:11 Dose: 1,000 mls Ketamine HCl (Ketamine) 50 mg NASAL EDNOW ONE Stop: 06/19/17 13:26 Last Admin: 06/19/17 13:59 Dose: Not Given Ketorolac Tromethamine (Toradol) 30 mg IVP EDNOW ONE Stop: 06/19/17 13:51 Last Admin: 06/19/17 13:59 Dose: 30 mg Ketorolac Tromethamine (Toradol) 15 mg IVP EDNOW ONE Stop: 06/19/17 15:08 Last Admin: 06/19/17 15:26 Dose: 15 mg Ondansetron HCl (Zofran) 4 mg IVP EDNOW ONE Stop: 06/19/17 14:04 Last Admin: 06/19/17 14:06 Dose: 4 mg Departure - Departure Disposition: Home, Routine, Self-Care Clinical Impression: Migraine aura, persistent Condition: Good Instructions: Migraine Headache (ED) Referrals: Marisa Jansen PA [Primary Care Provider] - As per Instructions
[2017-06-19] MEDS ORDERED: HALOPERIDOL LACT 5 MG/ML INJ IVP ONE (12:55)
[2017-06-19] MEDS ORDERED: NS 1,000 ML IV ONE (12:55)
[2017-06-19] MEDS ORDERED: DEXAMETHASONE 10 MG/ML VIAL IVP ONE (12:55)
[2017-06-19] MEDS ORDERED: KETAMINE 500 MG/10 ML VIAL NASAL ONE (13:25)
[2017-06-19] MEDS ORDERED: KETOROLAC 30 MG/1 ML SDV IVP ONE (13:50)
[2017-06-19] MEDS ORDERED: HYDROmorphONE/DILAUDID 1 MG/ML INJ IVP ONE ×2 (13:50→15:07)
[2017-06-19] MEDS ORDERED: ONDANSETRON 4 MG/2 ML VIAL IVP ONE (14:03)
[2017-06-19] MEDS ORDERED: KETOROLAC 15 MG/1 ML SDV IVP ONE (15:07)
[2017-06-19 16:01] VITALS: TEMP 98.2; O2SAT 97
[2017-06-19 16:04] VITALS: BP 124/84; PULSE 78; RESP 18
== END 2017-06-19 16:06 | disposition home or self-care (01) ==
DX: G43.509 Persistent migraine aura without cerebral infarction, not intractable, without status migrainosus (principal); E86.9 Volume depletion, unspecified; I25.10 Atherosclerotic heart disease of native coronary artery without angina pectoris; Z87.891 Personal history of nicotine dependence
CPT/HCPCS: 96374; J1100; J1170; J1200; J1630; J1885; J2405

== ENCOUNTER 2017-06-20 18:17 | Emergency (ER) | payer OTHER, MEDICAID ==
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
[2017-06-20] MEDS ORDERED: PROMETHAZINE HCL 25 MG/ML INJ IVP ONE (18:32)
[2017-06-20] MEDS ORDERED: KETOROLAC 30 MG/1 ML SDV IVP ONE (18:32)
[2017-06-20] MEDS ORDERED: NS 1,000 ML IV ONE (19:12)
[2017-06-20 21:07] VITALS: BP 130/68; PULSE 78; RESP 20; TEMP 97.9; O2SAT 100
== END 2017-06-20 21:05 | disposition home or self-care (01) ==
LOC: EDUNIT#
DX: G43.811 Other migraine, intractable, with status migrainosus (principal); I25.10 Atherosclerotic heart disease of native coronary artery without angina pectoris; E86.9 Volume depletion, unspecified; V44.5XXA Car driver injured in collision with heavy transport vehicle or bus in traffic accident, initial encounter; Y92.410 Unspecified street and highway as the place of occurrence of the external cause; Y99.8 Other external cause status; Y93.89 Activity, other specified
CPT/HCPCS: 96374; J1200; J1885; J2550

== ENCOUNTER → 2017-08-13 | Outpatient (CLI) | payer MEDICAID | LOC: FIMAGING 15:12 | PROVIDERS: ATTEND Physician Assistant | DX: M54.2 Cervicalgia (principal); R42 Dizziness and giddiness; D64.9 Anemia, unspecified; R93.0 Abnormal findings on diagnostic imaging of skull and head, not elsewhere classified; G44.52 New daily persistent headache (NDPH) ==